=== PATIENT | male | born 1950 | race Caucasian/White ===

== ENCOUNTER 2022-02-21 17:51 | Inpatient (IN) | payer MEDICARE, OTHER ==
[~2022-02-21] VITALS: Ht 165.1 cm; Wt 84.4 kg
[2022-02-21] MEDS ORDERED: NS 1,000 ML IV SCH (18:05)
[2022-02-21] MEDS ORDERED: ONDANSETRON 4MG 2ML VIAL IV ONE ×2 (18:05→19:30)
[2022-02-21] MEDS ORDERED: MORPHINE 4 MG/ML 1ML VIAL/SYRINGE IV ONE (18:05)
[2022-02-21 19:12] LABS: RSV AMPLIFICATION NEGATIVE (NEGATIVE)
[2022-02-21 19:37] LABS: BASO # 0.1 10^3/uL (0.0-0.2); BASO % 0.6 % (0.0-1.0); EOS # 0.2 10^3/uL (0.0-0.5); HEMATOCRIT 36.2 % (42.0-52.0); HEMOGLOBIN 11.7 g/dl (13.5-17.5); LYMPH # 1.1 10^3/uL (1.5-5.0); LYMPH % 12.4 % (24.0-44.0); MEAN CORPUSCULAR HEMOGLOBIN 31.2 pg (27.0-33.0); MEAN CORPUSCULAR HGB CONC 32.3 g/dl (32.0-36.5); MEAN CORPUSCULAR VOLUME 96.5 fl (80.0-96.0); MONO % 28.4 % (2.0-8.0); NEUTROPHILS # 4.7 10^3/uL (1.5-8.5); NEUTROPHILS % 54.9 % (36.0-66.0); RED BLOOD COUNT 3.75 10^6/uL (4.30-6.10); WHITE BLOOD COUNT 8.5 10^3/uL (4.0-10.0)
[2022-02-21] MEDS: MORPHINE 4 MG/ML 1ML VIAL/SYRINGE IV PRN ×2 (19:38→20:31)
[2022-02-21 19:44] LABS: INR 1.07; PROTHROMBIN TIME 14.1 SECONDS (12.5-14.5)
[2022-02-21 20:10] LABS: MONO # 2.4 10^3/uL (0.0-0.8); PLATELET COUNT, AUTOMATED 52 10^3/uL (150-450)
[2022-02-21 20:20] LABS: BLOOD UREA NITROGEN 13 MG/DL (7-18); CALCIUM LEVEL 8.2 MG/DL (8.8-10.2); CARBON DIOXIDE LEVEL 27 MEQ/L (21-32); CHLORIDE LEVEL 108 MEQ/L (98-107); CK-MB VALUE MASS 1.3 NG/ML (<3.6); CREATININE FOR GFR 0.73 MG/DL (0.70-1.30); GLOMERULAR FILTRATION RATE > 60.0 (>49); GLUCOSE, FASTING 104 MG/DL (70-100); MB/CK RELATIVE INDEX 1.4 (< OR =4); SODIUM LEVEL 140 MEQ/L (136-145)
[2022-02-21] MEDS ORDERED: CLOP75TA99 PO (21:06)
[2022-02-21] MEDS ORDERED: HYDR12CA PO (21:07)
[2022-02-21] MEDS ORDERED: ATOR80TA59 PO (21:07)
[2022-02-21] MEDS ORDERED: ATEN25TA PO (21:07)
[2022-02-21] MEDS ORDERED: OMEP40CA5 PO (21:07)
[2022-02-21] MEDS ORDERED: LEVO50TA5 PO (21:07)
[2022-02-21] MEDS ORDERED: ASPI-161 PO (21:07)
[2022-02-21] MEDS ORDERED: HOME MED LIST COMPLETE! XX SCH (21:10)
[2022-02-21] MEDS: HYDROMORPHONE HCL 0.5 MG/ 0.5 ML SYRINGE (J1170 PER 1) IV PRN (21:26)
[2022-02-21] MEDS ORDERED: ALBUTEROL SULFATE 2.5 MG/0.5 ML INH NEB SOLN NEB PRN (21:55)
[2022-02-21] MEDS ORDERED: ACETAMINOPHEN TAB 650MG DOSE (2X325MG) PO PRN (21:55)
[2022-02-21] MEDS ORDERED: IPRATROPIUM 0.5MG/ALBUTEROL 2.5MG INH SOL UD 3ML (DUONEB) NEB ONE (23:00)
[2022-02-21] MEDS ORDERED: LORazepam 2 MG TAB PO PRN (23:25)
[2022-02-21 23:33] VITALS: BP 137/61
[2022-02-21] MEDS: THIAMINE 100 MG TAB PO SCH (23:40)
[2022-02-22] VITALS (27 sets, daily range): BP systolic 105–142; BP diastolic 54–77; O2SAT 87–96
[2022-02-22 00:40] LABS: ALBUMIN 3.5 GM/DL (3.2-5.2); BILIRUBIN,DIRECT 0.3 MG/DL (0.0-0.2); BILIRUBIN,TOTAL 0.7 MG/DL (0.2-1.0); TOTAL PROTEIN 6.1 GM/DL (6.4-8.2)
[2022-02-22] MEDS: HYDROMORPHONE HCL 0.5 MG/ 0.5 ML SYRINGE (J1170 PER 1) IV PRN ×5 (00:43→20:46)
[2022-02-22] MEDS: IPRATROPIUM 0.5MG/ALBUTEROL 2.5MG INH SOL UD 3ML (DUONEB) NEB SCH ×7 (01:04→23:39)
[2022-02-22] MEDS: LEVOTHYROXINE 50MCG TABLET (0.05MG) PO SCH (05:10)
[2022-02-22 06:02] LABS: HEMATOCRIT 32.8 % (42.0-52.0); HEMOGLOBIN 10.4 g/dl (13.5-17.5); MEAN CORPUSCULAR HEMOGLOBIN 31.1 pg (27.0-33.0); MEAN CORPUSCULAR HGB CONC 31.7 g/dl (32.0-36.5); MEAN CORPUSCULAR VOLUME 98.2 fl (80.0-96.0); PLATELET COUNT, AUTOMATED 58 10^3/uL (150-450); RED BLOOD COUNT 3.34 10^6/uL (4.30-6.10); WHITE BLOOD COUNT 9.7 10^3/uL (4.0-10.0)
[2022-02-22 06:33] LABS: BLOOD UREA NITROGEN 13 MG/DL (7-18); CALCIUM LEVEL 7.8 MG/DL (8.8-10.2); CARBON DIOXIDE LEVEL 28 MEQ/L (21-32); CHLORIDE LEVEL 105 MEQ/L (98-107); CREATININE FOR GFR 0.78 MG/DL (0.70-1.30); GLOMERULAR FILTRATION RATE > 60.0 (>49); GLUCOSE, FASTING 103 MG/DL (70-100); MAGNESIUM LEVEL 2.1 MG/DL (1.8-2.4); POTASSIUM SERUM 4.4 MEQ/L (3.5-5.1); SODIUM LEVEL 138 MEQ/L (136-145)
[2022-02-22] MEDS ORDERED: methylPREDNISolone 125MG 2ML VIAL IV ONE (07:35)
[2022-02-22 08:25] LABS: LDH LACTATE DEHYDROGENASE 237 U/L (87-241)
[2022-02-22] MEDS: THIAMINE 100 MG TAB PO SCH ×2 (09:28→20:45)
[2022-02-22] MEDS: MULTIVITAMINS/MINERALS THERAP 1 TAB PO SCH (09:28)
[2022-02-22] MEDS: hydroCHLOROthiazide 12.5 MG CAPSULE PO SCH (09:28)
[2022-02-22] MEDS: atenoloL 25 MG TAB PO SCH (09:28)
[2022-02-22] MEDS: ATORVASTATIN 20 MG TAB PO SCH (09:28)
[2022-02-22] MEDS: PANTOPRAZOLE 40MG TAB (PROTONIX) PO SCH (09:28)
[2022-02-22] MEDS: FOLIC ACID 1MG TAB PO SCH (09:29)
[2022-02-22 15:13] LABS: HEMATOCRIT 33.7 % (42.0-52.0); HEMOGLOBIN 10.7 g/dl (13.5-17.5); MEAN CORPUSCULAR HEMOGLOBIN 31.3 pg (27.0-33.0); MEAN CORPUSCULAR HGB CONC 31.8 g/dl (32.0-36.5); MEAN CORPUSCULAR VOLUME 98.5 fl (80.0-96.0); RED BLOOD COUNT 3.42 10^6/uL (4.30-6.10); WHITE BLOOD COUNT 8.1 10^3/uL (4.0-10.0)
[2022-02-22 15:22] LABS: PLATELET COUNT, AUTOMATED 75 10^3/uL (150-450)
[2022-02-22 15:35] LABS: ATYPICAL LYMPH 5 % (0-5); BLAST CELLS 1 % (0-0); EOSINOPHILS 1 % (0-3); LYMPHOCYTES 2 % (16-44); METAMYELOCYTES 4 % (0-0); MONOCYTES 7 % (0-5); MYELOCYTES 2 % (0-0); NEUTROPHILS 49 % (28-66); PLATELET ESTIMATE DECREASED (NORMAL)
[2022-02-22 15:36] LABS: ANISOCYTOSIS 1+
[2022-02-22] MEDS ORDERED: PANTOPRAZOLE 40MG VIAL IV ONE (16:00)
[2022-02-22] MEDS ORDERED: PANTOPRAZOLE 40MG VIAL IV SCH (16:00)
[2022-02-22] MEDS ORDERED: FONDAPARINUX SODIUM 2.5 MG/0.5 ML SYRINGE SC ONE (18:00)
[2022-02-22] MEDS: methylPREDNISolone 40MG 1ML VIAL IV SCH (20:45)
[2022-02-22] MEDS ORDERED: ISOVUE-370 76% 100ML VIAL As Ordered ONE (21:13)
[2022-02-22] MEDS ORDERED: guaiFENesin SYRUP 200MG 10ML UDC PO PRN (22:15)
[2022-02-22 23:42] LABS: HEMATOCRIT 31.4 % (42.0-52.0); MEAN CORPUSCULAR HEMOGLOBIN 31.2 pg (27.0-33.0); MEAN CORPUSCULAR HGB CONC 31.8 g/dl (32.0-36.5); MEAN CORPUSCULAR VOLUME 97.8 fl (80.0-96.0); RED BLOOD COUNT 3.21 10^6/uL (4.30-6.10); WHITE BLOOD COUNT 8.4 10^3/uL (4.0-10.0)
[2022-02-22 23:43] LABS: PLATELET COUNT, AUTOMATED 98 10^3/uL (150-450)
[2022-02-23] VITALS (30 sets, daily range): BP systolic 102–123; BP diastolic 51–60; O2SAT 89–98
[2022-02-23] MEDS: HYDROMORPHONE HCL 0.5 MG/ 0.5 ML SYRINGE (J1170 PER 1) IV PRN ×3 (00:17→10:43)
[2022-02-23] MEDS: IPRATROPIUM 0.5MG/ALBUTEROL 2.5MG INH SOL UD 3ML (DUONEB) NEB SCH ×6 (04:00→23:43)
[2022-02-23 06:10] LABS: HEMATOCRIT 30.9 % (42.0-52.0); HEMOGLOBIN 9.7 g/dl (13.5-17.5); MEAN CORPUSCULAR HEMOGLOBIN 31.2 pg (27.0-33.0); MEAN CORPUSCULAR HGB CONC 31.4 g/dl (32.0-36.5); MEAN CORPUSCULAR VOLUME 99.4 fl (80.0-96.0); PLATELET COUNT, AUTOMATED 89 10^3/uL (150-450); RED BLOOD COUNT 3.11 10^6/uL (4.30-6.10); WHITE BLOOD COUNT 10.5 10^3/uL (4.0-10.0)
[2022-02-23] MEDS: LEVOTHYROXINE 50MCG TABLET (0.05MG) PO SCH (06:23)
[2022-02-23 06:46] LABS: BLOOD UREA NITROGEN 20 MG/DL (7-18); CALCIUM LEVEL 8.7 MG/DL (8.8-10.2); CARBON DIOXIDE LEVEL 30 MEQ/L (21-32); CHLORIDE LEVEL 104 MEQ/L (98-107); CREATININE FOR GFR 0.95 MG/DL (0.70-1.30); GLOMERULAR FILTRATION RATE > 60.0 (>49); GLUCOSE, FASTING 166 MG/DL (70-100); MAGNESIUM LEVEL 2.7 MG/DL (1.8-2.4); PHOSPHORUS LEVEL 4.4 MG/DL (2.5-4.9); POTASSIUM SERUM 4.2 MEQ/L (3.5-5.1); SODIUM LEVEL 141 MEQ/L (136-145)
[2022-02-23] MEDS: ATORVASTATIN 20 MG TAB PO SCH (07:47)
[2022-02-23] MEDS: FOLIC ACID 1MG TAB PO SCH (07:47)
[2022-02-23] MEDS: MULTIVITAMINS/MINERALS THERAP 1 TAB PO SCH (07:47)
[2022-02-23] MEDS: THIAMINE 100 MG TAB PO SCH ×2 (07:47→20:54)
[2022-02-23] MEDS: hydroCHLOROthiazide 12.5 MG CAPSULE PO SCH (07:47)
[2022-02-23] MEDS: atenoloL 25 MG TAB PO SCH (07:48)
[2022-02-23] MEDS: methylPREDNISolone 40MG 1ML VIAL IV SCH ×2 (07:48→20:01)
[2022-02-23] MEDS: PANTOPRAZOLE 40MG TAB (PROTONIX) PO SCH (07:48)
[2022-02-23 14:14] LABS: HEMATOCRIT 31.3 % (42.0-52.0); HEMOGLOBIN 9.7 g/dl (13.5-17.5); MEAN CORPUSCULAR HEMOGLOBIN 30.8 pg (27.0-33.0); MEAN CORPUSCULAR VOLUME 99.4 fl (80.0-96.0); PLATELET COUNT, AUTOMATED 110 10^3/uL (150-450); RED BLOOD COUNT 3.15 10^6/uL (4.30-6.10); WHITE BLOOD COUNT 12.7 10^3/uL (4.0-10.0)
[2022-02-23] MEDS ORDERED: ROCURONIUM BROMIDE 50 MG/5 ML VIAL As Ordered ONE ×2 (15:13→16:48)
[2022-02-23] MEDS ORDERED: ONDANSETRON 4MG 2ML VIAL As Ordered ONE (15:13)
[2022-02-23] MEDS ORDERED: dexameTHASONE 4 MG/ML 1ML VIAL (J1100 PER 1MG) As Ordered ONE (15:13)
[2022-02-23] MEDS ORDERED: LIDOCAINE 2% 100MG/5ML SDV (FOR ANES.) As Ordered ONE (15:13)
[2022-02-23] MEDS ORDERED: propofoL 200 MG/20 ML VIAL As Ordered ONE (15:13)
[2022-02-23] MEDS ORDERED: fentaNYL 100 MCG/2 ML INJECTION As Ordered ONE (15:17)
[2022-02-23] MEDS ORDERED: MIDAZOLAM INJ 2MG/2ML VIAL (J2250 PER 1MG) As Ordered ONE (15:17)
[2022-02-23] MEDS ORDERED: ceFAZolin 2 GM/D5W 50 ML IV BAG (J0690 PER 500MG) As Ordered ONE (15:59)
[2022-02-23] MEDS ORDERED: SUGAMMADEX SODIUM 500 MG/5 ML VIAL (BRIDION) As Ordered ONE (16:33)
[2022-02-23] MEDS ORDERED: ALBUTEROL 6.7GM INHALER **FOR ANES. CART/OMNICELL ONLY As Ordered ONE (17:04)
[2022-02-23] MEDS ORDERED: PHENYLephrine 500MCG 5ML (100MCG/ML) SYRINGE As Ordered ONE (17:04)
[2022-02-23] MEDS ORDERED: LABETALOL 100MG/20ML VIAL As Ordered ONE (17:32)
[2022-02-23] MEDS ORDERED: LR 1,000 ML IV SCH (17:35)
[2022-02-23] MEDS ORDERED: ONDANSETRON 4MG 2ML VIAL IV PRN (17:35)
[2022-02-23] MEDS ORDERED: oxyCODONE 5MG TAB PO PRN (17:35)
[2022-02-23] MEDS ORDERED: ALBUTEROL SULFATE 2.5 MG/0.5 ML INH NEB SOLN INH ONE (17:35)
[2022-02-23] MEDS ORDERED: HYDROMORPHONE HCL 0.5 MG/ 0.5 ML SYRINGE (J1170 PER 1) IV PRN (17:35)
[2022-02-23] MEDS ORDERED: MORPHINE 4 MG/ML 1ML VIAL/SYRINGE IV PRN (17:45)
[2022-02-23] MEDS ORDERED: PROPOFOL 1,000 MG/100 ML VIAL As Ordered ONE (17:52)
[2022-02-23] MEDS ORDERED: FENTANYL DRIP LOCK BOX KEY 1 EACH XX PRN (19:15)
[2022-02-23] MEDS: fentaNYL 100 MCG/2 ML INJECTION IV PRN ×2 (19:21→19:26)
[2022-02-23] MEDS: propofoL 1,000 MG in IV 1 EA IV SCH ×2 (19:22→21:44)
[2022-02-23] MEDS: fentaNYL CITRATE/NaCl 1,000 MCG in IV 1 EA IV SCH (20:01)
[2022-02-23 20:11] LABS: ABG O2 SATURATION 95.9 % (95.0-99.0)
[2022-02-23 20:12] LABS: ABG pH (ARTERIAL) 7.314 UNITS (7.350-7.450)
[2022-02-23 20:13] LABS: ABG BASE EXCESS 3.4 (-2.0-2.0); ABG HCO3 30.6 MEQ/L (22.0-26.0); ABG PARTIAL PRESSURE O2 86.8 mmHg (75.0-100.0); ABG STANDARD HCO3 27.5 MEQ/L (22.0-26.0); ABG TOTAL CO2 32.5 MEQ/L (23.0-31.0)
[2022-02-23 20:15] LABS: ABG PARTIAL PRESSURE CO2 61.6 mmHg (35.0-45.0)
[2022-02-24] VITALS (19 sets, daily range): BP systolic 110–146; BP diastolic 54–69; O2SAT 98
[2022-02-24] MEDS ORDERED: ceFAZolin SOD 2 GM in IV 1 EA IV SCH ×2
[2022-02-24] MEDS: methylPREDNISolone 40MG 1ML VIAL IV SCH ×4 (02:14→19:22)
[2022-02-24] MEDS: propofoL 1,000 MG in IV 1 EA IV SCH ×3 (02:15→19:23)
[2022-02-24] MEDS: IPRATROPIUM 0.5MG/ALBUTEROL 2.5MG INH SOL UD 3ML (DUONEB) NEB SCH ×5 (04:03→19:49)
[2022-02-24 04:57] LABS: HEMATOCRIT 27.9 % (42.0-52.0); HEMOGLOBIN 8.4 g/dl (13.5-17.5); MEAN CORPUSCULAR HEMOGLOBIN 30.8 pg (27.0-33.0); MEAN CORPUSCULAR HGB CONC 30.1 g/dl (32.0-36.5); MEAN CORPUSCULAR VOLUME 102.2 fl (80.0-96.0); RED BLOOD COUNT 2.73 10^6/uL (4.30-6.10)
[2022-02-24 05:08] LABS: ABG HCO3 34.4 MEQ/L (22.0-26.0); ABG O2 SATURATION 94.3 % (95.0-99.0); ABG PARTIAL PRESSURE CO2 59.3 mmHg (35.0-45.0); ABG PARTIAL PRESSURE O2 76.4 mmHg (75.0-100.0); ABG STANDARD HCO3 31.8 MEQ/L (22.0-26.0); ABG TOTAL CO2 36.2 MEQ/L (23.0-31.0); ABG pH (ARTERIAL) 7.381 UNITS (7.350-7.450)
[2022-02-24 05:10] LABS: PLATELET COUNT, AUTOMATED 87 10^3/uL (150-450)
[2022-02-24] MEDS: fentaNYL CITRATE/NaCl 1,000 MCG in IV 1 EA IV SCH ×2 (05:15→13:03)
[2022-02-24 05:18] LABS: ALBUMIN 2.9 GM/DL (3.2-5.2); ALT/SGPT 42 U/L (12-78); BILIRUBIN,TOTAL 0.4 MG/DL (0.2-1.0); BLOOD UREA NITROGEN 22 MG/DL (7-18); CALCIUM LEVEL 8.4 MG/DL (8.8-10.2); CARBON DIOXIDE LEVEL 34 MEQ/L (21-32); CHLORIDE LEVEL 102 MEQ/L (98-107); CREATININE FOR GFR 1.03 MG/DL (0.70-1.30); GLOMERULAR FILTRATION RATE > 60.0 (>49); GLUCOSE, FASTING 153 MG/DL (70-100); MAGNESIUM LEVEL 2.7 MG/DL (1.8-2.4); POTASSIUM SERUM 4.3 MEQ/L (3.5-5.1); SODIUM LEVEL 138 MEQ/L (136-145)
[2022-02-24 05:28] LABS: ANISOCYTOSIS 2+; ATYPICAL LYMPH 3 % (0-5); LYMPHOCYTES 5 % (16-44); METAMYELOCYTES 9 % (0-0); MONOCYTES 20 % (0-5); MYELOCYTES 1 % (0-0); NEUTROPHILS 61 % (28-66); PLATELET ESTIMATE DECREASED (NORMAL)
[2022-02-24 05:29] LABS: HYPOCHROMASIA 1+
[2022-02-24] MEDS: PIPERACILLIN/TAZOBACTAM SOD 3.375 GM in D5W MINI-BAG PLUS 50 ML IV SCH ×4 (05:43→22:21)
[2022-02-24] MEDS: PANTOPRAZOLE 40MG VIAL IV SCH (08:46)
[2022-02-24] MEDS: LEVOTHYROXINE 100MCG (0.1MG) 5ML SDV PF (SOLUTION FORM) IV SCH (08:46)
[2022-02-24] MEDS: dexmedeTOMidine 200 MCG in IV 1 EA IV SCH ×5 (08:54→23:34)
[2022-02-24] MEDS: hydroCHLOROthiazide 12.5 MG CAPSULE PO SCH (08:56)
[2022-02-24] MEDS: FOLIC ACID 1MG TAB PO SCH (08:56)
[2022-02-24] MEDS: ATORVASTATIN 20 MG TAB PO SCH (08:57)
[2022-02-24] MEDS: MULTIVITAMINS/MINERALS THERAP 1 TAB PO SCH (08:57)
[2022-02-24] MEDS: atenoloL 25 MG TAB PO SCH (08:57)
[2022-02-24] MEDS: THIAMINE 100 MG TAB PO SCH (08:57)
[2022-02-24] MEDS ORDERED: LEVOTHYROXINE 100MCG (0.1MG) 5ML SDV PF (SOLUTION FORM) IV SCH (09:00)
[2022-02-24] MEDS: CLOPIDOGREL 75 MG TAB PO SCH (11:53)
[2022-02-24] MEDS: ENOXAPARIN 40MG/0.4ML SYRINGE (J1650 PER 10MG) SC SCH (20:16)
[2022-02-25] VITALS (21 sets, daily range): BP systolic 143–174; BP diastolic 67–82; O2SAT 97–98
[2022-02-25] MEDS: IPRATROPIUM 0.5MG/ALBUTEROL 2.5MG INH SOL UD 3ML (DUONEB) NEB SCH ×7 (00:05→23:11)
[2022-02-25] MEDS: propofoL 1,000 MG in IV 1 EA IV SCH ×3 (02:54→14:35)
[2022-02-25] MEDS: methylPREDNISolone 40MG 1ML VIAL IV SCH ×4 (02:54→20:10)
[2022-02-25] MEDS: dexmedeTOMidine 200 MCG in IV 1 EA IV SCH ×10 (02:54→23:40)
[2022-02-25 04:34] LABS: HEMATOCRIT 28.1 % (42.0-52.0); HEMOGLOBIN 8.8 g/dl (13.5-17.5); MEAN CORPUSCULAR HGB CONC 31.3 g/dl (32.0-36.5); MEAN CORPUSCULAR VOLUME 98.9 fl (80.0-96.0); RED BLOOD COUNT 2.84 10^6/uL (4.30-6.10); WHITE BLOOD COUNT 11.1 10^3/uL (4.0-10.0)
[2022-02-25 04:35] LABS: PLATELET COUNT, AUTOMATED 70 10^3/uL (150-450)
[2022-02-25] MEDS: PIPERACILLIN/TAZOBACTAM SOD 3.375 GM in D5W MINI-BAG PLUS 50 ML IV SCH ×4 (04:54→23:10)
[2022-02-25 05:07] LABS: ALBUMIN 3.1 GM/DL (3.2-5.2); ALT/SGPT 40 U/L (12-78); BILIRUBIN,TOTAL 0.5 MG/DL (0.2-1.0); BLOOD UREA NITROGEN 23 MG/DL (7-18); CALCIUM LEVEL 8.2 MG/DL (8.8-10.2); CARBON DIOXIDE LEVEL 37 MEQ/L (21-32); CHLORIDE LEVEL 100 MEQ/L (98-107); CREATININE FOR GFR 0.98 MG/DL (0.70-1.30); GLOMERULAR FILTRATION RATE > 60.0 (>49); GLUCOSE, FASTING 156 MG/DL (70-100); MAGNESIUM LEVEL 2.9 MG/DL (1.8-2.4); PHOSPHORUS LEVEL 4.1 MG/DL (2.5-4.9); POTASSIUM SERUM 3.9 MEQ/L (3.5-5.1); SODIUM LEVEL 139 MEQ/L (136-145); TOTAL PROTEIN 6.4 GM/DL (6.4-8.2)
[2022-02-25 05:45] LABS: ABG BASE EXCESS 10.5 (-2.0-2.0); ABG HCO3 35.9 MEQ/L (22.0-26.0); ABG O2 SATURATION 98.1 % (95.0-99.0); ABG PARTIAL PRESSURE CO2 53.2 mmHg (35.0-45.0); ABG PARTIAL PRESSURE O2 116.9 mmHg (75.0-100.0); ABG STANDARD HCO3 34.2 MEQ/L (22.0-26.0); ABG TOTAL CO2 37.5 MEQ/L (23.0-31.0); ABG pH (ARTERIAL) 7.447 UNITS (7.350-7.450)
[2022-02-25 07:36] LABS: ATYPICAL LYMPH 2 % (0-5); LYMPHOCYTES 4 % (16-44); METAMYELOCYTES 7 % (0-0); MONOCYTES 32 % (0-5); MYELOCYTES 8 % (0-0); NEUTROPHILS 41 % (28-66)
[2022-02-25 07:37] LABS: ANISOCYTOSIS 2+; HYPOCHROMASIA 1+
[2022-02-25 07:39] LABS: PLATELET ESTIMATE DECREASED (NORMAL); STOMATOCYTES 1+
[2022-02-25] MEDS: MIDAZOLAM INJ 2MG/2ML VIAL (J2250 PER 1MG) IV PRN ×2 (07:58→10:08)
[2022-02-25] MEDS: PANTOPRAZOLE 40MG VIAL IV SCH (08:09)
[2022-02-25] MEDS: ATORVASTATIN 20 MG TAB PO SCH (08:10)
[2022-02-25] MEDS: atenoloL 25 MG TAB PO SCH (08:10)
[2022-02-25] MEDS: MULTIVITAMINS/MINERALS THERAP 1 TAB PO SCH (08:10)
[2022-02-25] MEDS: hydroCHLOROthiazide 12.5 MG CAPSULE PO SCH (08:10)
[2022-02-25] MEDS: CLOPIDOGREL 75 MG TAB PO SCH (08:10)
[2022-02-25] MEDS: FOLIC ACID 1MG TAB PO SCH (08:10)
[2022-02-25] MEDS: LEVOTHYROXINE 100MCG (0.1MG) 5ML SDV PF (SOLUTION FORM) IV SCH (08:13)
[2022-02-25] MEDS: fentaNYL CITRATE/NaCl 1,000 MCG in IV 1 EA IV SCH (08:55)
[2022-02-25] MEDS: ASPIRIN 81MG ENTERIC TABLET PO SCH (09:00)
[2022-02-25 11:05] LABS: ABG BASE EXCESS 9.6 (-2.0-2.0); ABG HCO3 35.3 MEQ/L (22.0-26.0); ABG O2 SATURATION 92.6 % (95.0-99.0); ABG PARTIAL PRESSURE CO2 54.8 mmHg (35.0-45.0); ABG PARTIAL PRESSURE O2 66.5 mmHg (75.0-100.0); ABG STANDARD HCO3 33.2 MEQ/L (22.0-26.0); ABG pH (ARTERIAL) 7.427 UNITS (7.350-7.450)
[2022-02-25] MEDS ORDERED: LORazepam 2 MG/ML VIAL As Ordered ONE (12:10)
[2022-02-25] MEDS ORDERED: HALOPERIDOL 5MG/ML VIAL (J1630 PER 1) As Ordered ONE (12:12)
[2022-02-25] MEDS ORDERED: HALOPERIDOL 5MG/ML VIAL (J1630 PER 1) IM STA (12:15)
[2022-02-25] MEDS ORDERED: LORazepam 2 MG/ML VIAL IV STA (12:15)
[2022-02-25] MEDS ORDERED: dexameTHASONE 20MG/5ML VIAL (J1100 PER 1MG) IV STA (12:21)
[2022-02-25] MEDS ORDERED: LORazepam 2 MG/ML VIAL IV PRN (13:35)
[2022-02-25] MEDS: LORazepam 2 MG/ML VIAL IV PRN (19:38)
[2022-02-25] MEDS: ENOXAPARIN 40MG/0.4ML SYRINGE (J1650 PER 10MG) SC SCH (20:10)
[2022-02-26] VITALS (13 sets, daily range): BP systolic 122–171; BP diastolic 61–79
[2022-02-26] MEDS: methylPREDNISolone 40MG 1ML VIAL IV SCH ×4 (01:33→20:08)
[2022-02-26] MEDS: dexmedeTOMidine 200 MCG in IV 1 EA IV SCH ×8 (01:34→23:06)
[2022-02-26] MEDS: LORazepam 2 MG/ML VIAL IV PRN ×5 (02:17→18:45)
[2022-02-26] MEDS: IPRATROPIUM 0.5MG/ALBUTEROL 2.5MG INH SOL UD 3ML (DUONEB) NEB SCH ×2 (02:58→07:48)
[2022-02-26] MEDS: PIPERACILLIN/TAZOBACTAM SOD 3.375 GM in D5W MINI-BAG PLUS 50 ML IV SCH (04:09)
[2022-02-26 05:00] LABS: HEMATOCRIT 31.2 % (42.0-52.0); HEMOGLOBIN 9.6 g/dl (13.5-17.5); MEAN CORPUSCULAR HEMOGLOBIN 30.9 pg (27.0-33.0); MEAN CORPUSCULAR HGB CONC 30.8 g/dl (32.0-36.5); MEAN CORPUSCULAR VOLUME 100.3 fl (80.0-96.0); PLATELET COUNT, AUTOMATED 76 10^3/uL (150-450); RED BLOOD COUNT 3.11 10^6/uL (4.30-6.10); WHITE BLOOD COUNT 10.5 10^3/uL (4.0-10.0)
[2022-02-26 05:11] LABS: ANISOCYTOSIS 2+; ATYPICAL LYMPH 4 % (0-5); LYMPHOCYTES 5 % (16-44); METAMYELOCYTES 4 % (0-0); MONOCYTES 14 % (0-5); MYELOCYTES 6 % (0-0); NEUTROPHILS 65 % (28-66); PLATELET ESTIMATE DECREASED (NORMAL); POIKILOCYTOSIS 1+
[2022-02-26 05:12] LABS: HYPOCHROMASIA 1+
[2022-02-26 05:51] LABS: ALBUMIN 3.2 GM/DL (3.2-5.2); ALT/SGPT 42 U/L (12-78); BILIRUBIN,TOTAL 0.7 MG/DL (0.2-1.0); BLOOD UREA NITROGEN 26 MG/DL (7-18); CALCIUM LEVEL 8.8 MG/DL (8.8-10.2); CARBON DIOXIDE LEVEL 32 MEQ/L (21-32); CHLORIDE LEVEL 103 MEQ/L (98-107); CREATININE FOR GFR 0.84 MG/DL (0.70-1.30); GLOMERULAR FILTRATION RATE > 60.0 (>49); GLUCOSE, FASTING 158 MG/DL (70-100); MAGNESIUM LEVEL 2.9 MG/DL (1.8-2.4); PHOSPHORUS LEVEL 4.4 MG/DL (2.5-4.9); POTASSIUM SERUM 4.7 MEQ/L (3.5-5.1); SODIUM LEVEL 141 MEQ/L (136-145); TOTAL PROTEIN 6.9 GM/DL (6.4-8.2)
[2022-02-26] MEDS: PANTOPRAZOLE 40MG VIAL IV SCH (08:00)
[2022-02-26] MEDS: atenoloL 25 MG TAB PO SCH (09:00)
[2022-02-26] MEDS: FOLIC ACID 1MG TAB PO SCH (09:00)
[2022-02-26] MEDS: MULTIVITAMINS/MINERALS THERAP 1 TAB PO SCH (09:00)
[2022-02-26] MEDS: ATORVASTATIN 20 MG TAB PO SCH (09:00)
[2022-02-26] MEDS: CLOPIDOGREL 75 MG TAB PO SCH (09:00)
[2022-02-26] MEDS: ASPIRIN 81MG ENTERIC TABLET PO SCH (09:00)
[2022-02-26] MEDS ORDERED: IPRATROPIUM 0.5MG/ALBUTEROL 2.5MG INH SOL UD 3ML (DUONEB) NEB PRN (10:20)
[2022-02-26] MEDS ORDERED: LR 1,000 ML IV SCH (10:20)
[2022-02-26] MEDS ORDERED: HALOPERIDOL 5MG/ML VIAL (J1630 PER 1) IV PRN ×2 (10:20→20:00)
[2022-02-26] MEDS: LEVOTHYROXINE 100MCG (0.1MG) 5ML SDV PF (SOLUTION FORM) IV SCH (10:42)
[2022-02-26] MEDS: ALBUTEROL SULFATE 2.5 MG/0.5 ML INH NEB SOLN NEB SCH ×3 (11:31→20:44)
[2022-02-26] MEDS: SODIUM CHLORIDE HYPERTONIC 3% 15ML NEB SOL INH SCH ×3 (11:31→20:44)
[2022-02-26] MEDS: ENOXAPARIN 40MG/0.4ML SYRINGE (J1650 PER 10MG) SC SCH (20:08)
[2022-02-27] VITALS (22 sets, daily range): BP systolic 111–185; BP diastolic 55–124
[2022-02-27] MEDS: SODIUM CHLORIDE HYPERTONIC 3% 15ML NEB SOL INH SCH ×6 (00:10→20:47)
[2022-02-27] MEDS: ALBUTEROL SULFATE 2.5 MG/0.5 ML INH NEB SOLN NEB SCH ×6 (00:10→20:47)
[2022-02-27] MEDS: dexmedeTOMidine 200 MCG in IV 1 EA IV SCH ×6 (01:14→15:05)
[2022-02-27] MEDS: methylPREDNISolone 40MG 1ML VIAL IV SCH ×3 (01:14→17:12)
[2022-02-27 06:28] LABS: HEMATOCRIT 29.4 % (42.0-52.0); HEMOGLOBIN 9.3 g/dl (13.5-17.5); MEAN CORPUSCULAR HEMOGLOBIN 31.2 pg (27.0-33.0); MEAN CORPUSCULAR HGB CONC 31.6 g/dl (32.0-36.5); MEAN CORPUSCULAR VOLUME 98.7 fl (80.0-96.0); RED BLOOD COUNT 2.98 10^6/uL (4.30-6.10); WHITE BLOOD COUNT 9.4 10^3/uL (4.0-10.0)
[2022-02-27 06:33] LABS: PLATELET COUNT, AUTOMATED 76 10^3/uL (150-450)
[2022-02-27 06:52] LABS: ALT/SGPT 42 U/L (12-78); BILIRUBIN,TOTAL 0.7 MG/DL (0.2-1.0); BLOOD UREA NITROGEN 28 MG/DL (7-18); CALCIUM LEVEL 8.7 MG/DL (8.8-10.2); CARBON DIOXIDE LEVEL 30 MEQ/L (21-32); CHLORIDE LEVEL 106 MEQ/L (98-107); CREATININE FOR GFR 0.76 MG/DL (0.70-1.30); GLOMERULAR FILTRATION RATE > 60.0 (>49); GLUCOSE, FASTING 154 MG/DL (70-100); MAGNESIUM LEVEL 2.9 MG/DL (1.8-2.4); PHOSPHORUS LEVEL 4.9 MG/DL (2.5-4.9); POTASSIUM SERUM 4.7 MEQ/L (3.5-5.1); SODIUM LEVEL 140 MEQ/L (136-145); TOTAL PROTEIN 6.4 GM/DL (6.4-8.2)
[2022-02-27 07:30] LABS: ATYPICAL LYMPH 2 % (0-5); LYMPHOCYTES 6 % (16-44); METAMYELOCYTES 2 % (0-0); MONOCYTES 17 % (0-5); MYELOCYTES 2 % (0-0); NEUTROPHILS 59 % (28-66)
[2022-02-27 07:32] LABS: ANISOCYTOSIS 1+; PLATELET ESTIMATE DECREASED (NORMAL); SMUDGE CELLS 1+
[2022-02-27 07:33] LABS: POLYCHROMASIA 1+
[2022-02-27] MEDS: LORazepam 2 MG/ML VIAL IV PRN (08:19)
[2022-02-27] MEDS ORDERED: dexmedeTOMidine 200 MCG in IV 1 EA IV SCH (08:32)
[2022-02-27] MEDS: NS 0.45% 1,000 ML IV SCH ×2 (08:58→21:54)
[2022-02-27] MEDS: PANTOPRAZOLE 40MG VIAL IV SCH (08:59)
[2022-02-27] MEDS: LEVOTHYROXINE 100MCG (0.1MG) 5ML SDV PF (SOLUTION FORM) IV SCH (08:59)
[2022-02-27] MEDS: atenoloL 25 MG TAB PO SCH (09:00)
[2022-02-27] MEDS: CLOPIDOGREL 75 MG TAB PO SCH (09:00)
[2022-02-27] MEDS: ATORVASTATIN 20 MG TAB PO SCH (09:00)
[2022-02-27] MEDS: MULTIVITAMINS/MINERALS THERAP 1 TAB PO SCH (09:00)
[2022-02-27] MEDS: ASPIRIN 81MG ENTERIC TABLET PO SCH ×2 (09:00→18:31)
[2022-02-27] MEDS: FOLIC ACID 1MG TAB PO SCH (09:00)
[2022-02-27] MEDS ORDERED: ACETAMINOPHEN 650 MG SUPP PR PRN (11:05)
[2022-02-27] MEDS ORDERED: ASPIRIN 300 MG SUPP PR SCH (11:05)
[2022-02-27] MEDS ORDERED: atenoloL 25 MG TAB PO ONE (18:00)
[2022-02-27] MEDS ORDERED: CLOPIDOGREL 75 MG TAB PO ONE (18:20)
[2022-02-27] MEDS: ENOXAPARIN 40MG/0.4ML SYRINGE (J1650 PER 10MG) SC SCH (21:35)
[2022-02-28] VITALS (10 sets, daily range): BP systolic 109–144; BP diastolic 55–69
[2022-02-28] MEDS: ALBUTEROL SULFATE 2.5 MG/0.5 ML INH NEB SOLN NEB SCH ×6 (00:04→19:43)
[2022-02-28] MEDS: SODIUM CHLORIDE HYPERTONIC 3% 15ML NEB SOL INH SCH ×6 (00:04→19:43)
[2022-02-28] MEDS: methylPREDNISolone 40MG 1ML VIAL IV SCH ×2 (02:24→14:57)
[2022-02-28 05:33] LABS: HEMATOCRIT 28.6 % (42.0-52.0); HEMOGLOBIN 8.9 g/dl (13.5-17.5); MEAN CORPUSCULAR HGB CONC 31.1 g/dl (32.0-36.5); MEAN CORPUSCULAR VOLUME 99.7 fl (80.0-96.0); RED BLOOD COUNT 2.87 10^6/uL (4.30-6.10); WHITE BLOOD COUNT 12.3 10^3/uL (4.0-10.0)
[2022-02-28 05:46] LABS: PLATELET COUNT, AUTOMATED 77 10^3/uL (150-450)
[2022-02-28 05:51] LABS: LYMPHOCYTES 10 % (16-44); METAMYELOCYTES 5 % (0-0); MONOCYTES 23 % (0-5); MYELOCYTES 2 % (0-0); NEUTROPHILS 57 % (28-66)
[2022-02-28 05:52] LABS: ANISOCYTOSIS 1+; HYPOCHROMASIA 1+; PLATELET ESTIMATE DECREASED (NORMAL)
[2022-02-28 05:53] LABS: SMUDGE CELLS 1+
[2022-02-28 06:16] LABS: ALT/SGPT 46 U/L (12-78); BILIRUBIN,TOTAL 0.9 MG/DL (0.2-1.0); BLOOD UREA NITROGEN 27 MG/DL (7-18); CALCIUM LEVEL 8.2 MG/DL (8.8-10.2); CARBON DIOXIDE LEVEL 29 MEQ/L (21-32); CHLORIDE LEVEL 105 MEQ/L (98-107); CREATININE FOR GFR 0.77 MG/DL (0.70-1.30); GLOMERULAR FILTRATION RATE > 60.0 (>49); GLUCOSE, FASTING 128 MG/DL (70-100); MAGNESIUM LEVEL 2.5 MG/DL (1.8-2.4); POTASSIUM SERUM 4.1 MEQ/L (3.5-5.1); SODIUM LEVEL 139 MEQ/L (136-145); TOTAL PROTEIN 5.9 GM/DL (6.4-8.2)
[2022-02-28] MEDS ORDERED: ACETAMINOPHEN TAB 650MG DOSE (2X325MG) PO PRN (08:25)
[2022-02-28] MEDS: MULTIVITAMINS/MINERALS THERAP 1 TAB PO SCH (08:32)
[2022-02-28] MEDS: FOLIC ACID 1MG TAB PO SCH (08:32)
[2022-02-28] MEDS: ASPIRIN 81MG ENTERIC TABLET PO SCH (08:32)
[2022-02-28] MEDS: ATORVASTATIN 20 MG TAB PO SCH (08:33)
[2022-02-28] MEDS: atenoloL 25 MG TAB PO SCH (08:33)
[2022-02-28] MEDS: CLOPIDOGREL 75 MG TAB PO SCH (08:33)
[2022-02-28] MEDS: LEVOTHYROXINE 100MCG (0.1MG) 5ML SDV PF (SOLUTION FORM) IV SCH (08:34)
[2022-02-28] MEDS: PANTOPRAZOLE 40MG VIAL IV SCH (08:34)
[2022-02-28] MEDS: SENNA 8.6 MG TAB (SENOKOT) PO SCH ×2 (10:42→21:02)
[2022-02-28] MEDS: MIRALAX *UNIT DOSE* 17GM PACKET PO SCH ×2 (10:43→21:02)
[2022-02-28] MEDS: oxyCODONE 5MG TAB PO PRN (14:58)
[2022-02-28] MEDS: ENOXAPARIN 40MG/0.4ML SYRINGE (J1650 PER 10MG) SC SCH (21:02)
[2022-02-28] MEDS ORDERED: CLOTRIMAZOLE 1% TOPICAL CREAM 30GM TOP PRN (22:10)
[2022-03-01] VITALS: BP 136/60
[2022-03-01] MEDS: SODIUM CHLORIDE HYPERTONIC 3% 15ML NEB SOL INH SCH ×4 (00:08→11:36)
[2022-03-01] MEDS: ALBUTEROL SULFATE 2.5 MG/0.5 ML INH NEB SOLN NEB SCH ×4 (00:08→11:36)
[2022-03-01] MEDS: methylPREDNISolone 40MG 1ML VIAL IV SCH (02:28)
[2022-03-01] MEDS: oxyCODONE 5MG TAB PO PRN (02:29)
[2022-03-01 04:00] VITALS: BP 144/66
[2022-03-01 05:01] LABS: HEMATOCRIT 29.7 % (42.0-52.0); HEMOGLOBIN 9.3 g/dl (13.5-17.5); MEAN CORPUSCULAR HEMOGLOBIN 31.2 pg (27.0-33.0); MEAN CORPUSCULAR HGB CONC 31.3 g/dl (32.0-36.5); MEAN CORPUSCULAR VOLUME 99.7 fl (80.0-96.0); RED BLOOD COUNT 2.98 10^6/uL (4.30-6.10); WHITE BLOOD COUNT 16.4 10^3/uL (4.0-10.0)
[2022-03-01 05:02] LABS: PLATELET COUNT, AUTOMATED 77 10^3/uL (150-450)
[2022-03-01 05:19] LABS: LYMPHOCYTES 13 % (16-44); METAMYELOCYTES 2 % (0-0); MONOCYTES 21 % (0-5); NEUTROPHILS 59 % (28-66)
[2022-03-01 05:20] LABS: PLATELET ESTIMATE DECREASED (NORMAL)
[2022-03-01 05:21] LABS: ANISOCYTOSIS 1+
[2022-03-01 05:35] LABS: ALBUMIN 2.9 GM/DL (3.2-5.2); ALT/SGPT 44 U/L (12-78); BILIRUBIN,TOTAL 0.9 MG/DL (0.2-1.0); BLOOD UREA NITROGEN 26 MG/DL (7-18); CALCIUM LEVEL 8.1 MG/DL (8.8-10.2); CARBON DIOXIDE LEVEL 29 MEQ/L (21-32); CHLORIDE LEVEL 108 MEQ/L (98-107); CREATININE FOR GFR 0.75 MG/DL (0.70-1.30); GLOMERULAR FILTRATION RATE > 60.0 (>49); GLUCOSE, FASTING 106 MG/DL (70-100); MAGNESIUM LEVEL 2.3 MG/DL (1.8-2.4); POTASSIUM SERUM 3.7 MEQ/L (3.5-5.1); SODIUM LEVEL 140 MEQ/L (136-145); TOTAL PROTEIN 5.8 GM/DL (6.4-8.2)
[2022-03-01 06:00] VITALS: BP 139/65
[2022-03-01] MEDS ORDERED: LEVOTHYROXINE 50MCG TABLET (0.05MG) PO SCH (06:00)
[2022-03-01] MEDS ORDERED: SYMBICORT 80/4.5MCG INHALER 6GM INH SCH (08:00)
[2022-03-01 08:01] VITALS: BP 164/76
[2022-03-01] MEDS: ASPIRIN 81MG ENTERIC TABLET PO SCH (08:24)
[2022-03-01] MEDS: SENNA 8.6 MG TAB (SENOKOT) PO SCH (08:24)
[2022-03-01] MEDS: FOLIC ACID 1MG TAB PO SCH (08:24)
[2022-03-01] MEDS: atenoloL 25 MG TAB PO SCH (08:24)
[2022-03-01] MEDS: MIRALAX *UNIT DOSE* 17GM PACKET PO SCH (08:25)
[2022-03-01] MEDS: MULTIVITAMINS/MINERALS THERAP 1 TAB PO SCH (08:25)
[2022-03-01] MEDS: CLOPIDOGREL 75 MG TAB PO SCH (08:25)
[2022-03-01] MEDS: ATORVASTATIN 20 MG TAB PO SCH (08:25)
[2022-03-01] MEDS ORDERED: THIAMINE 100 MG TAB PO SCH (09:00)
[2022-03-01] MEDS ORDERED: PANTOPRAZOLE 40MG TAB (PROTONIX) PO SCH (09:00)
[2022-03-01] MEDS ORDERED: FOLI1TAB11 PO (10:34)
[2022-03-01] MEDS ORDERED: MIRA1POW3 PO (10:35)
[2022-03-01] MEDS ORDERED: PRED20TA PO (10:35)
[2022-03-01] MEDS ORDERED: IPRA0.00 NEB (10:35)
[2022-03-01] MEDS ORDERED: OXYC-517 PO (10:35)
[2022-03-01] MEDS ORDERED: THIA100TA PO (10:35)
[2022-03-02] MEDS ORDERED: predniSONE 20 MG TAB PO SCH (09:00)
== END 2022-03-01 14:04 | DRG 480 ==
LOC: EDBD 17:51 → M ED 17:51 → M ED INP 21:54 → ENRESERV 02-22 00:42 → M PCU 02-22 01:41 → M ICU 02-23 19:31 → M PCU 03-01 05:47
PROVIDERS: ADMIT Internal Medicine; ATTEND Internal Medicine
PROC: 30233R1 Transfusion of Nonautologous Platelets into Peripheral Vein, Percutaneous Approach (ICD-10-PCS; 2022-02-21)
PROC: 0QS606Z Reposition Right Upper Femur with Intramedullary Internal Fixation Device, Open Approach (ICD-10-PCS; principal; 2022-02-23 11:00)
DX: S72.141A Displaced intertrochanteric fracture of right femur, initial encounter for closed fracture (principal); J69.0 Pneumonitis due to inhalation of food and vomit; J44.1 Chronic obstructive pulmonary disease with (acute) exacerbation; F10.139 Alcohol abuse with withdrawal, unspecified; J96.11 Chronic respiratory failure with hypoxia; J96.12 Chronic respiratory failure with hypercapnia; I25.10 Atherosclerotic heart disease of native coronary artery without angina pectoris; I73.9 Peripheral vascular disease, unspecified; F17.210 Nicotine dependence, cigarettes, uncomplicated; G47.33 Obstructive sleep apnea (adult) (pediatric); D69.6 Thrombocytopenia, unspecified; W18.09XA Striking against other object with subsequent fall, initial encounter; Y92.73 Farm field as the place of occurrence of the external cause; Y93.01 Activity, walking, marching and hiking; Z95.820 Peripheral vascular angioplasty status with implants and grafts; Z79.82 Long term (current) use of aspirin; Z79.02 Long term (current) use of antithrombotics/antiplatelets; Z79.52 Long term (current) use of systemic steroids; Z79.899 Other long term (current) drug therapy; Z90.2 Acquired absence of lung [part of]; Z95.5 Presence of coronary angioplasty implant and graft; Z85.118 Personal history of other malignant neoplasm of bronchus and lung; Z92.3 Personal history of irradiation; Z92.21 Personal history of antineoplastic chemotherapy

== ENCOUNTER 2022-03-01 10:00 | Inpatient (IN) | payer MEDICARE ==
[~2022-03-01] VITALS: Ht 165.1 cm; Wt 88.7 kg
[~2022-03-01 10:00] MED LIST: ASPI-161 PO; ATEN25TA PO; ATOR80TA59 PO; CLOP75TA99 PO; HYDR12CA PO; LEVO50TA5 PO; OMEP40CA5 PO
[2022-03-01] MEDS ORDERED: FOLI1TAB11 PO (10:34)
[2022-03-01] MEDS ORDERED: MIRA1POW3 PO (10:35)
[2022-03-01] MEDS ORDERED: OXYC-517 PO (10:35)
[2022-03-01] MEDS ORDERED: IPRA0.00 NEB (10:35)
[2022-03-01] MEDS ORDERED: THIA100TA PO (10:35)
[2022-03-01] MEDS ORDERED: PRED20TA PO (10:35)
[2022-03-01 14:00] VITALS: BP 146/70
[2022-03-01] MEDS ORDERED: ONDANSETRON 4MG TAB PO PRN (14:30)
[2022-03-01] MEDS ORDERED: MIRALAX *UNIT DOSE* 17GM PACKET PO PRN (14:30)
[2022-03-01] MEDS: REMEDY PHYTOPLEX Z-GUARD PASTE 113GM TUBE (FROM STOREROOM PRODUCT) TOP SCH ×2 (16:00→20:52)
[2022-03-01] MEDS: GABAPENTIN 100 MG CAP PO SCH ×2 (16:05→20:51)
[2022-03-01] MEDS: ACETAMINOPHEN 500 MG TAB PO SCH ×2 (16:05→20:51)
[2022-03-01] MEDS: SUCRALFATE 1 GM TAB PO SCH ×2 (17:27→20:51)
[2022-03-01] MEDS: oxyCODONE 5MG TAB PO PRN (17:27)
[2022-03-01 20:00] VITALS: BP 127/64
[2022-03-01] MEDS: PANTOPRAZOLE 40MG TAB (PROTONIX) PO SCH (20:51)
[2022-03-01] MEDS: DOCUSATE SODIUM 100MG CAPSULE PO SCH (20:52)
[2022-03-01] MEDS: SENNA 8.6 MG TAB (SENOKOT) PO SCH (20:52)
[2022-03-01] MEDS ORDERED: ENOXAPARIN 40MG/0.4ML SYRINGE (J1650 PER 10MG) SC SCH (21:00)
[2022-03-01] MEDS: SYMBICORT 80/4.5MCG INHALER 6GM INH SCH (21:06)
[2022-03-01] MEDS: COMBIVENT RESPIMAT 100-20MCG INHALER 4GM INH SCH (21:06)
[2022-03-02] MEDS: LEVOTHYROXINE 50MCG TABLET (0.05MG) PO SCH (05:15)
[2022-03-02 06:00] VITALS: BP 117/56
[2022-03-02] MEDS: oxyCODONE 5MG TAB PO PRN (07:01)
[2022-03-02] MEDS: THIAMINE 100 MG TAB PO SCH (07:16)
[2022-03-02] MEDS: predniSONE 10 MG TAB PO SCH (07:17)
[2022-03-02] MEDS: PANTOPRAZOLE 40MG TAB (PROTONIX) PO SCH (07:18)
[2022-03-02] MEDS: FOLIC ACID 1MG TAB PO SCH (07:18)
[2022-03-02] MEDS: ASPIRIN 81MG ENTERIC TABLET PO SCH (07:18)
[2022-03-02] MEDS: GABAPENTIN 100 MG CAP PO SCH (07:18)
[2022-03-02] MEDS: MULTIVITAMINS/MINERALS THERAP 1 TAB PO SCH (07:18)
[2022-03-02] MEDS: CLOPIDOGREL 75 MG TAB PO SCH (07:18)
[2022-03-02] MEDS: ACETAMINOPHEN 500 MG TAB PO SCH ×3 (07:18→20:41)
[2022-03-02] MEDS: ATORVASTATIN 20 MG TAB PO SCH (07:18)
[2022-03-02] MEDS: SUCRALFATE 1 GM TAB PO SCH ×4 (07:18→20:41)
[2022-03-02] MEDS: REMEDY PHYTOPLEX Z-GUARD PASTE 113GM TUBE (FROM STOREROOM PRODUCT) TOP SCH ×3 (07:19→20:42)
[2022-03-02] MEDS: atenoloL 25 MG TAB PO SCH (07:19)
[2022-03-02] MEDS: DOCUSATE SODIUM 100MG CAPSULE PO SCH ×2 (07:21→20:42)
[2022-03-02 07:31] LABS: HEMATOCRIT 30.3 % (42.0-52.0); HEMOGLOBIN 9.2 g/dl (13.5-17.5); MEAN CORPUSCULAR HEMOGLOBIN 30.7 pg (27.0-33.0); MEAN CORPUSCULAR HGB CONC 30.4 g/dl (32.0-36.5); WHITE BLOOD COUNT 14.9 10^3/uL (4.0-10.0)
[2022-03-02 07:35] LABS: PLATELET COUNT, AUTOMATED 66 10^3/uL (150-450)
[2022-03-02 08:13] LABS: ALBUMIN 2.9 GM/DL (3.2-5.2); ALKALINE PHOSPHATASE 64 U/L (45-117); ALT/SGPT 39 U/L (12-78); AST/SGOT 14 U/L (7-37); BLOOD UREA NITROGEN 28 MG/DL (7-18); CALCIUM LEVEL 8.3 MG/DL (8.8-10.2); CARBON DIOXIDE LEVEL 29 MEQ/L (21-32); CHLORIDE LEVEL 108 MEQ/L (98-107); CREATININE FOR GFR 0.86 MG/DL (0.70-1.30); GLOMERULAR FILTRATION RATE > 60.0 (>49); GLUCOSE, FASTING 89 MG/DL (70-100); POTASSIUM SERUM 3.4 MEQ/L (3.5-5.1); SODIUM LEVEL 141 MEQ/L (136-145); TOTAL PROTEIN 5.4 GM/DL (6.4-8.2)
[2022-03-02 08:24] LABS: ATYPICAL LYMPH 3 % (0-5); EOSINOPHILS 2 % (0-3); LYMPHOCYTES 7 % (16-44); METAMYELOCYTES 3 % (0-0); MONOCYTES 23 % (0-5); NEUTROPHILS 59 % (28-66)
[2022-03-02 08:25] LABS: ANISOCYTOSIS 1+; PLATELET ESTIMATE DECREASED (NORMAL)
[2022-03-02] MEDS: SYMBICORT 80/4.5MCG INHALER 6GM INH SCH ×2 (08:51→20:36)
[2022-03-02] MEDS: COMBIVENT RESPIMAT 100-20MCG INHALER 4GM INH SCH (08:51)
[2022-03-02] MEDS ORDERED: MULTIVITAMINS/MINERALS THERAP 1 TAB PO SCH (09:00)
[2022-03-02] MEDS ORDERED: COMBIVENT RESPIMAT 100-20MCG INHALER 4GM INH PRN (12:05)
[2022-03-02] MEDS: TIOTROPIUM INHALER/CAPSULE (SPIRIVA) INH SCH (13:36)
[2022-03-02 14:00] VITALS: BP 136/72
[2022-03-02] MEDS: GABAPENTIN 300 MG CAP PO SCH ×2 (16:32→20:41)
[2022-03-02 20:00] VITALS: BP 124/66
[2022-03-02] MEDS: SENNA 8.6 MG TAB (SENOKOT) PO SCH (20:42)
[2022-03-03] MEDS: LEVOTHYROXINE 50MCG TABLET (0.05MG) PO SCH (05:32)
[2022-03-03 06:00] VITALS: BP 139/63
[2022-03-03 06:48] LABS: HEMATOCRIT 28.3 % (42.0-52.0); HEMOGLOBIN 8.8 g/dl (13.5-17.5); MEAN CORPUSCULAR HEMOGLOBIN 30.9 pg (27.0-33.0); MEAN CORPUSCULAR HGB CONC 31.1 g/dl (32.0-36.5); MEAN CORPUSCULAR VOLUME 99.3 fl (80.0-96.0); RED BLOOD COUNT 2.85 10^6/uL (4.30-6.10); WHITE BLOOD COUNT 13.1 10^3/uL (4.0-10.0)
[2022-03-03 06:49] LABS: PLATELET COUNT, AUTOMATED 64 10^3/uL (150-450)
[2022-03-03 07:25] LABS: BLOOD UREA NITROGEN 24 MG/DL (9-23); CALCIUM LEVEL 7.8 MG/DL (8.3-10.6); CARBON DIOXIDE LEVEL 28 MMOL/L (20-31); CHLORIDE LEVEL 106 MMOL/L (98-107); CREATININE FOR GFR 0.74 MG/DL (0.70-1.30); GLOMERULAR FILTRATION RATE > 60.0 (>49); GLUCOSE, FASTING 95 MG/DL (74-106); POTASSIUM SERUM 3.4 MMOL/L (3.5-5.1); SODIUM LEVEL 144 MMOL/L (136-145)
[2022-03-03] MEDS: ACETAMINOPHEN 500 MG TAB PO SCH ×3 (07:26→20:04)
[2022-03-03 07:35] LABS: EOSINOPHILS 2 % (0-3); LYMPHOCYTES 17 % (16-44); METAMYELOCYTES 2 % (0-0); MONOCYTES 29 % (0-5); NEUTROPHILS 43 % (28-66)
[2022-03-03 07:36] LABS: ANISOCYTOSIS 1+; HYPOCHROMASIA 1+; PLATELET ESTIMATE DECREASED (NORMAL)
[2022-03-03] MEDS: SYMBICORT 80/4.5MCG INHALER 6GM INH SCH ×2 (08:03→19:29)
[2022-03-03] MEDS: TIOTROPIUM INHALER/CAPSULE (SPIRIVA) INH SCH (08:03)
[2022-03-03] MEDS: ATORVASTATIN 20 MG TAB PO SCH (08:12)
[2022-03-03] MEDS: FOLIC ACID 1MG TAB PO SCH (08:12)
[2022-03-03] MEDS: SUCRALFATE 1 GM TAB PO SCH ×4 (08:12→20:03)
[2022-03-03] MEDS: THIAMINE 100 MG TAB PO SCH (08:12)
[2022-03-03] MEDS: PANTOPRAZOLE 40MG TAB (PROTONIX) PO SCH (08:12)
[2022-03-03] MEDS: CLOPIDOGREL 75 MG TAB PO SCH (08:13)
[2022-03-03] MEDS: GABAPENTIN 300 MG CAP PO SCH ×3 (08:13→20:03)
[2022-03-03] MEDS: predniSONE 10 MG TAB PO SCH (08:13)
[2022-03-03] MEDS: ASPIRIN 81MG ENTERIC TABLET PO SCH (08:13)
[2022-03-03] MEDS: MULTIVITAMINS/MINERALS THERAP 1 TAB PO SCH (08:13)
[2022-03-03] MEDS: DOCUSATE SODIUM 100MG CAPSULE PO SCH ×2 (08:14→20:03)
[2022-03-03] MEDS: atenoloL 25 MG TAB PO SCH (08:14)
[2022-03-03] MEDS: REMEDY PHYTOPLEX Z-GUARD PASTE 113GM TUBE (FROM STOREROOM PRODUCT) TOP SCH ×3 (08:14→20:04)
[2022-03-03] MEDS: oxyCODONE 5MG TAB PO PRN (08:48)
[2022-03-03] MEDS ORDERED: POTASSIUM CHLORIDE 10MEQ SR TABLET PO ONE (10:30)
[2022-03-03 13:53] LABS: MAGNESIUM LEVEL 1.9 MG/DL (1.8-2.4)
[2022-03-03 14:00] VITALS: BP 139/64
[2022-03-03 20:00] VITALS: BP 102/62
[2022-03-03] MEDS: SENNA 8.6 MG TAB (SENOKOT) PO SCH (20:03)
[2022-03-03] MEDS ORDERED: BISACODYL 10 MG SUPP PR PRN (20:20)
[2022-03-04] MEDS: LEVOTHYROXINE 50MCG TABLET (0.05MG) PO SCH (06:18)
[2022-03-04] MEDS: oxyCODONE 5MG TAB PO SCH ×2 (06:20→11:14)
[2022-03-04 06:50] VITALS: BP 138/70
[2022-03-04 07:06] LABS: BLOOD UREA NITROGEN 24 MG/DL (9-23); CALCIUM LEVEL 8.6 MG/DL (8.3-10.6); CARBON DIOXIDE LEVEL 29 MMOL/L (20-31); CHLORIDE LEVEL 109 MMOL/L (98-107); CREATININE FOR GFR 0.79 MG/DL (0.70-1.30); GLOMERULAR FILTRATION RATE > 60.0 (>49); GLUCOSE, FASTING 111 MG/DL (74-106); POTASSIUM SERUM 3.6 MMOL/L (3.5-5.1); SODIUM LEVEL 145 MMOL/L (136-145)
[2022-03-04] MEDS: MIRALAX *UNIT DOSE* 17GM PACKET PO SCH (09:00)
[2022-03-04] MEDS: atenoloL 25 MG TAB PO SCH (09:00)
[2022-03-04] MEDS: REMEDY PHYTOPLEX Z-GUARD PASTE 113GM TUBE (FROM STOREROOM PRODUCT) TOP SCH ×3 (09:00→21:05)
[2022-03-04] MEDS: TIOTROPIUM INHALER/CAPSULE (SPIRIVA) INH SCH (09:00)
[2022-03-04] MEDS: SYMBICORT 80/4.5MCG INHALER 6GM INH SCH ×2 (09:01→20:52)
[2022-03-04] MEDS: ASPIRIN 81MG ENTERIC TABLET PO SCH (09:17)
[2022-03-04] MEDS: SUCRALFATE 1 GM TAB PO SCH ×4 (09:17→21:04)
[2022-03-04] MEDS: ATORVASTATIN 20 MG TAB PO SCH (09:19)
[2022-03-04] MEDS: THIAMINE 100 MG TAB PO SCH (09:19)
[2022-03-04] MEDS: FOLIC ACID 1MG TAB PO SCH (09:19)
[2022-03-04] MEDS: GABAPENTIN 300 MG CAP PO SCH (09:20)
[2022-03-04] MEDS: MULTIVITAMINS/MINERALS THERAP 1 TAB PO SCH (09:20)
[2022-03-04] MEDS: PANTOPRAZOLE 40MG TAB (PROTONIX) PO SCH (09:20)
[2022-03-04] MEDS: predniSONE 10 MG TAB PO SCH (09:20)
[2022-03-04] MEDS: ACETAMINOPHEN 500 MG TAB PO SCH ×3 (09:21→21:05)
[2022-03-04] MEDS: DOCUSATE SODIUM 100MG CAPSULE PO SCH ×2 (09:21→21:05)
[2022-03-04] MEDS: CLOPIDOGREL 75 MG TAB PO SCH (09:21)
[2022-03-04 14:00] VITALS: BP 146/69
[2022-03-04 20:00] VITALS: BP 137/59
[2022-03-04] MEDS: SENNA 8.6 MG TAB (SENOKOT) PO SCH (21:05)
[2022-03-04] MEDS: RAMELTEON 8 MG TAB (ROZEREM) PO SCH (21:05)
[2022-03-04] MEDS: GABAPENTIN 400MG CAP PO SCH (21:05)
[2022-03-05 05:12] VITALS: BP 130/60
[2022-03-05] MEDS: LEVOTHYROXINE 50MCG TABLET (0.05MG) PO SCH (05:23)
[2022-03-05 05:42] LABS: HEMATOCRIT 27.2 % (42.0-52.0); HEMOGLOBIN 8.2 g/dl (13.5-17.5); MEAN CORPUSCULAR HEMOGLOBIN 30.6 pg (27.0-33.0); MEAN CORPUSCULAR HGB CONC 30.1 g/dl (32.0-36.5); MEAN CORPUSCULAR VOLUME 101.5 fl (80.0-96.0); RED BLOOD COUNT 2.68 10^6/uL (4.30-6.10); WHITE BLOOD COUNT 13.7 10^3/uL (4.0-10.0)
[2022-03-05 05:46] LABS: PLATELET COUNT, AUTOMATED 83 10^3/uL (150-450)
[2022-03-05] MEDS: oxyCODONE 5MG TAB PO SCH ×3 (06:03→13:18)
[2022-03-05] MEDS: GABAPENTIN 300 MG CAP PO SCH ×2 (06:04→13:17)
[2022-03-05 06:49] LABS: BLOOD UREA NITROGEN 24 MG/DL (9-23); CALCIUM LEVEL 8.4 MG/DL (8.3-10.6); CARBON DIOXIDE LEVEL 27 MMOL/L (20-31); CHLORIDE LEVEL 110 MMOL/L (98-107); CREATININE FOR GFR 0.68 MG/DL (0.70-1.30); GLOMERULAR FILTRATION RATE > 60.0 (>49); GLUCOSE, FASTING 90 MG/DL (74-106); POTASSIUM SERUM 3.5 MMOL/L (3.5-5.1); SODIUM LEVEL 144 MMOL/L (136-145)
[2022-03-05] MEDS: SUCRALFATE 1 GM TAB PO SCH ×4 (07:30→20:21)
[2022-03-05 08:10] LABS: ATYPICAL LYMPH 4 % (0-5); EOSINOPHILS 2 % (0-3); LYMPHOCYTES 23 % (16-44); METAMYELOCYTES 1 % (0-0); MONOCYTES 20 % (0-5); NEUTROPHILS 44 % (28-66)
[2022-03-05 08:11] LABS: ANISOCYTOSIS 1+; HYPOCHROMASIA 1+; MICROCYTOSIS 1+; PLATELET ESTIMATE DECREASED (NORMAL)
[2022-03-05] MEDS: TIOTROPIUM INHALER/CAPSULE (SPIRIVA) INH SCH (08:48)
[2022-03-05] MEDS: SYMBICORT 80/4.5MCG INHALER 6GM INH SCH ×2 (08:49→20:15)
[2022-03-05] MEDS: REMEDY PHYTOPLEX Z-GUARD PASTE 113GM TUBE (FROM STOREROOM PRODUCT) TOP SCH ×3 (09:00→20:08)
[2022-03-05] MEDS: ANALGESIC BALM CRM 3OZ TOP SCH ×3 (09:00→20:22)
[2022-03-05] MEDS: predniSONE 10 MG TAB PO SCH (10:03)
[2022-03-05] MEDS: ASPIRIN 81MG ENTERIC TABLET PO SCH (10:03)
[2022-03-05] MEDS: MIRALAX *UNIT DOSE* 17GM PACKET PO SCH (10:03)
[2022-03-05] MEDS: DICLOFENAC EPOLAMINE 1.3 % PATCH TOP SCH ×2 (10:03→22:09)
[2022-03-05] MEDS: MULTIVITAMINS/MINERALS THERAP 1 TAB PO SCH (10:03)
[2022-03-05] MEDS: FERROUS SULFATE 325MG TAB PO SCH (10:04)
[2022-03-05] MEDS: atenoloL 25 MG TAB PO SCH (10:04)
[2022-03-05] MEDS: DOCUSATE SODIUM 100MG CAPSULE PO SCH ×2 (10:04→20:20)
[2022-03-05] MEDS: ATORVASTATIN 20 MG TAB PO SCH (10:06)
[2022-03-05] MEDS: FOLIC ACID 1MG TAB PO SCH (10:07)
[2022-03-05] MEDS: CLOPIDOGREL 75 MG TAB PO SCH (10:07)
[2022-03-05] MEDS: PANTOPRAZOLE 40MG TAB (PROTONIX) PO SCH (10:07)
[2022-03-05] MEDS: THIAMINE 100 MG TAB PO SCH (10:07)
[2022-03-05] MEDS: ACETAMINOPHEN 500 MG TAB PO SCH ×3 (10:08→20:21)
[2022-03-05] MEDS: oxyCODONE 5MG TAB PO PRN ×2 (10:38→22:08)
[2022-03-05 14:00] VITALS: BP 117/57
[2022-03-05 20:00] VITALS: BP 112/55
[2022-03-05] MEDS: GABAPENTIN 400MG CAP PO SCH (20:20)
[2022-03-05] MEDS: SENNA 8.6 MG TAB (SENOKOT) PO SCH (20:21)
[2022-03-05] MEDS: RAMELTEON 8 MG TAB (ROZEREM) PO SCH (22:08)
[2022-03-06] MEDS: LEVOTHYROXINE 50MCG TABLET (0.05MG) PO SCH (05:12)
[2022-03-06 06:00] VITALS: BP 124/57
[2022-03-06] MEDS: GABAPENTIN 300 MG CAP PO SCH ×2 (06:29→11:07)
[2022-03-06] MEDS: oxyCODONE 5MG TAB PO SCH ×2 (06:30→11:08)
[2022-03-06] MEDS: MIRALAX *UNIT DOSE* 17GM PACKET PO SCH (07:20)
[2022-03-06] MEDS: FERROUS SULFATE 325MG TAB PO SCH (07:20)
[2022-03-06] MEDS: DOCUSATE SODIUM 100MG CAPSULE PO SCH ×2 (07:20→20:32)
[2022-03-06] MEDS: FOLIC ACID 1MG TAB PO SCH (07:20)
[2022-03-06] MEDS: THIAMINE 100 MG TAB PO SCH (07:20)
[2022-03-06] MEDS: ASPIRIN 81MG ENTERIC TABLET PO SCH (07:20)
[2022-03-06] MEDS: CLOPIDOGREL 75 MG TAB PO SCH (07:21)
[2022-03-06] MEDS: atenoloL 25 MG TAB PO SCH (07:21)
[2022-03-06] MEDS: MULTIVITAMINS/MINERALS THERAP 1 TAB PO SCH (07:21)
[2022-03-06] MEDS: ACETAMINOPHEN 500 MG TAB PO SCH ×3 (07:21→20:33)
[2022-03-06] MEDS: ATORVASTATIN 20 MG TAB PO SCH (07:21)
[2022-03-06] MEDS: SUCRALFATE 1 GM TAB PO SCH ×4 (07:21→20:33)
[2022-03-06] MEDS: PANTOPRAZOLE 40MG TAB (PROTONIX) PO SCH (07:21)
[2022-03-06] MEDS: predniSONE 10 MG TAB PO SCH (07:22)
[2022-03-06] MEDS: REMEDY PHYTOPLEX Z-GUARD PASTE 113GM TUBE (FROM STOREROOM PRODUCT) TOP SCH ×3 (07:22→20:00)
[2022-03-06] MEDS: ANALGESIC BALM CRM 3OZ TOP SCH ×3 (07:22→20:34)
[2022-03-06 08:00] LABS: HEMATOCRIT 31.2 % (42.0-52.0); HEMOGLOBIN 9.4 g/dl (13.5-17.5); MEAN CORPUSCULAR HEMOGLOBIN 30.9 pg (27.0-33.0); MEAN CORPUSCULAR HGB CONC 30.1 g/dl (32.0-36.5); MEAN CORPUSCULAR VOLUME 102.6 fl (80.0-96.0); PLATELET COUNT, AUTOMATED 104 10^3/uL (150-450); RED BLOOD COUNT 3.04 10^6/uL (4.30-6.10); WHITE BLOOD COUNT 15.4 10^3/uL (4.0-10.0)
[2022-03-06] MEDS: TIOTROPIUM INHALER/CAPSULE (SPIRIVA) INH SCH (08:00)
[2022-03-06] MEDS: SYMBICORT 80/4.5MCG INHALER 6GM INH SCH ×2 (08:00→20:20)
[2022-03-06 08:35] LABS: ATYPICAL LYMPH 4 % (0-5); EOSINOPHILS 1 % (0-3); LYMPHOCYTES 10 % (16-44); METAMYELOCYTES 2 % (0-0); MONOCYTES 21 % (0-5); MYELOCYTES 2 % (0-0); NEUTROPHILS 44 % (28-66)
[2022-03-06 08:36] LABS: ANISOCYTOSIS 2+; PLATELET ESTIMATE DECREASED (NORMAL); POLYCHROMASIA 1+
[2022-03-06 08:37] LABS: POIKILOCYTOSIS 1+
[2022-03-06] MEDS: DICLOFENAC EPOLAMINE 1.3 % PATCH TOP SCH ×3 (11:08→22:00)
[2022-03-06 14:00] VITALS: BP 155/69
[2022-03-06 20:00] VITALS: BP 132/78
[2022-03-06] MEDS: oxyCODONE 5MG TAB PO PRN (20:32)
[2022-03-06] MEDS: GABAPENTIN 400MG CAP PO SCH (20:32)
[2022-03-06] MEDS: SENNA 8.6 MG TAB (SENOKOT) PO SCH (20:32)
[2022-03-06] MEDS: RAMELTEON 8 MG TAB (ROZEREM) PO SCH (21:32)
[2022-03-07] MEDS: LEVOTHYROXINE 50MCG TABLET (0.05MG) PO SCH (05:34)
[2022-03-07 06:00] VITALS: BP 139/65
[2022-03-07] MEDS: SUCRALFATE 1 GM TAB PO SCH ×4 (06:58→21:08)
[2022-03-07] MEDS: GABAPENTIN 300 MG CAP PO SCH ×2 (06:58→11:10)
[2022-03-07] MEDS: DICLOFENAC EPOLAMINE 1.3 % PATCH TOP SCH ×2 (06:58→21:09)
[2022-03-07] MEDS: oxyCODONE 5MG TAB PO SCH ×2 (06:58→11:11)
[2022-03-07] MEDS: ASPIRIN 81MG ENTERIC TABLET PO SCH (08:35)
[2022-03-07] MEDS: atenoloL 25 MG TAB PO SCH (08:35)
[2022-03-07] MEDS: ACETAMINOPHEN 500 MG TAB PO SCH ×3 (08:35→21:09)
[2022-03-07] MEDS: ATORVASTATIN 20 MG TAB PO SCH (08:35)
[2022-03-07] MEDS: FERROUS SULFATE 325MG TAB PO SCH (08:35)
[2022-03-07] MEDS: PANTOPRAZOLE 40MG TAB (PROTONIX) PO SCH ×2 (08:35→21:09)
[2022-03-07] MEDS: MIRALAX *UNIT DOSE* 17GM PACKET PO SCH (08:35)
[2022-03-07] MEDS: THIAMINE 100 MG TAB PO SCH (08:36)
[2022-03-07] MEDS: FOLIC ACID 1MG TAB PO SCH (08:36)
[2022-03-07] MEDS: MULTIVITAMINS/MINERALS THERAP 1 TAB PO SCH (08:36)
[2022-03-07] MEDS: CLOPIDOGREL 75 MG TAB PO SCH (08:36)
[2022-03-07] MEDS: predniSONE 10 MG TAB PO SCH (08:36)
[2022-03-07] MEDS: DOCUSATE SODIUM 100MG CAPSULE PO SCH ×2 (08:36→21:00)
[2022-03-07] MEDS: ANALGESIC BALM CRM 3OZ TOP SCH ×3 (08:37→21:10)
[2022-03-07] MEDS: REMEDY PHYTOPLEX Z-GUARD PASTE 113GM TUBE (FROM STOREROOM PRODUCT) TOP SCH ×3 (08:39→21:00)
[2022-03-07] MEDS: SYMBICORT 80/4.5MCG INHALER 6GM INH SCH ×2 (11:06→20:18)
[2022-03-07] MEDS: TIOTROPIUM INHALER/CAPSULE (SPIRIVA) INH SCH (11:06)
[2022-03-07 14:00] VITALS: BP 135/63
[2022-03-07] MEDS: oxyCODONE 5MG TAB PO PRN (15:16)
[2022-03-07 20:00] VITALS: BP 129/60
[2022-03-07] MEDS: SENNA 8.6 MG TAB (SENOKOT) PO SCH (21:00)
[2022-03-07] MEDS: RAMELTEON 8 MG TAB (ROZEREM) PO SCH (21:08)
[2022-03-07] MEDS: GABAPENTIN 400MG CAP PO SCH (21:09)
[2022-03-08] MEDS: LEVOTHYROXINE 50MCG TABLET (0.05MG) PO SCH (05:14)
[2022-03-08 05:51] LABS: HEMATOCRIT 26.1 % (42.0-52.0); HEMOGLOBIN 7.9 g/dl (13.5-17.5); MEAN CORPUSCULAR HEMOGLOBIN 31.3 pg (27.0-33.0); MEAN CORPUSCULAR HGB CONC 30.3 g/dl (32.0-36.5); MEAN CORPUSCULAR VOLUME 103.6 fl (80.0-96.0); PLATELET COUNT, AUTOMATED 105 10^3/uL (150-450); RED BLOOD COUNT 2.52 10^6/uL (4.30-6.10)
[2022-03-08] MEDS: oxyCODONE 5MG TAB PO SCH ×2 (06:05→11:50)
[2022-03-08] MEDS: GABAPENTIN 300 MG CAP PO SCH ×2 (06:05→11:49)
[2022-03-08 06:16] LABS: ATYPICAL LYMPH 1 % (0-5); EOSINOPHILS 1 % (0-3); LYMPHOCYTES 6 % (16-44); METAMYELOCYTES 1 % (0-0); MONOCYTES 19 % (0-5); MYELOCYTES 2 % (0-0); NEUTROPHILS 66 % (28-66); PLATELET ESTIMATE DECREASED (NORMAL)
[2022-03-08 06:17] LABS: ANISOCYTOSIS 1+; POIKILOCYTOSIS 1+
[2022-03-08 06:22] LABS: BLOOD UREA NITROGEN 17 MG/DL (9-23); CALCIUM LEVEL 7.4 MG/DL (8.3-10.6); CARBON DIOXIDE LEVEL 31 MMOL/L (20-31); CHLORIDE LEVEL 106 MMOL/L (98-107); CREATININE FOR GFR 0.67 MG/DL (0.70-1.30); GLOMERULAR FILTRATION RATE > 60.0 (>49); GLUCOSE, FASTING 108 MG/DL (74-106); POTASSIUM SERUM 3.4 MMOL/L (3.5-5.1); SODIUM LEVEL 143 MMOL/L (136-145)
[2022-03-08 07:00] VITALS: BP 134/64
[2022-03-08] MEDS: SYMBICORT 80/4.5MCG INHALER 6GM INH SCH (07:06)
[2022-03-08] MEDS: TIOTROPIUM INHALER/CAPSULE (SPIRIVA) INH SCH (07:06)
[2022-03-08] MEDS: DOCUSATE SODIUM 100MG CAPSULE PO SCH ×2 (07:48→21:26)
[2022-03-08] MEDS: THIAMINE 100 MG TAB PO SCH (07:49)
[2022-03-08] MEDS: FOLIC ACID 1MG TAB PO SCH (07:49)
[2022-03-08] MEDS: ASPIRIN 81MG ENTERIC TABLET PO SCH (07:49)
[2022-03-08] MEDS: SUCRALFATE 1 GM TAB PO SCH ×4 (07:49→21:26)
[2022-03-08] MEDS: MULTIVITAMINS/MINERALS THERAP 1 TAB PO SCH (07:49)
[2022-03-08] MEDS: ACETAMINOPHEN 500 MG TAB PO SCH ×3 (07:50→21:26)
[2022-03-08] MEDS: atenoloL 25 MG TAB PO SCH (07:50)
[2022-03-08] MEDS: FERROUS SULFATE 325MG TAB PO SCH (07:50)
[2022-03-08] MEDS: MIRALAX *UNIT DOSE* 17GM PACKET PO SCH (07:51)
[2022-03-08] MEDS: PANTOPRAZOLE 40MG TAB (PROTONIX) PO SCH ×2 (07:51→21:25)
[2022-03-08] MEDS: ATORVASTATIN 20 MG TAB PO SCH (07:52)
[2022-03-08] MEDS: ANALGESIC BALM CRM 3OZ TOP SCH ×3 (07:53→21:27)
[2022-03-08] MEDS: REMEDY PHYTOPLEX Z-GUARD PASTE 113GM TUBE (FROM STOREROOM PRODUCT) TOP SCH ×3 (07:53→21:00)
[2022-03-08] MEDS ORDERED: BUDESONIDE 180MCG INHALER (PULMICORT FLEXHALER) INH SCH (12:05)
[2022-03-08] MEDS: DICLOFENAC EPOLAMINE 1.3 % PATCH TOP SCH ×2 (13:36→21:30)
[2022-03-08] MEDS: predniSONE 10 MG TAB PO SCH (13:36)
[2022-03-08 14:00] VITALS: BP 127/69
[2022-03-08 20:00] VITALS: BP 126/58
[2022-03-08] MEDS: COMBIVENT RESPIMAT 100-20MCG INHALER 4GM INH SCH (20:02)
[2022-03-08] MEDS: SYMBICORT 160/4.5MCG INHALER 6GM INH SCH (20:02)
[2022-03-08] MEDS: SENNA 8.6 MG TAB (SENOKOT) PO SCH (21:00)
[2022-03-08] MEDS: RAMELTEON 8 MG TAB (ROZEREM) PO SCH (21:26)
[2022-03-08] MEDS: GABAPENTIN 400MG CAP PO SCH (21:26)
[2022-03-08] MEDS: oxyCODONE 5MG TAB PO PRN (21:36)
[2022-03-09] VITALS (13 sets, daily range): BP systolic 114–144; BP diastolic 58–71
[2022-03-09] MEDS: GABAPENTIN 300 MG CAP PO SCH ×2 (06:24→11:43)
[2022-03-09] MEDS: LEVOTHYROXINE 50MCG TABLET (0.05MG) PO SCH (06:25)
[2022-03-09] MEDS: oxyCODONE 5MG TAB PO SCH ×2 (06:25→11:44)
[2022-03-09 07:33] LABS: HEMATOCRIT 25.6 % (42.0-52.0); HEMOGLOBIN 7.8 g/dl (13.5-17.5); MEAN CORPUSCULAR HEMOGLOBIN 31.5 pg (27.0-33.0); MEAN CORPUSCULAR HGB CONC 30.5 g/dl (32.0-36.5); MEAN CORPUSCULAR VOLUME 103.2 fl (80.0-96.0); PLATELET COUNT, AUTOMATED 103 10^3/uL (150-450); RED BLOOD COUNT 2.48 10^6/uL (4.30-6.10); WHITE BLOOD COUNT 12.8 10^3/uL (4.0-10.0)
[2022-03-09 08:43] LABS: ANISOCYTOSIS 2+; ATYPICAL LYMPH 4 % (0-5); LYMPHOCYTES 8 % (16-44); METAMYELOCYTES 1 % (0-0); MONOCYTES 18 % (0-5); NEUTROPHILS 64 % (28-66); PLATELET ESTIMATE DECREASED (NORMAL)
[2022-03-09] MEDS: TIOTROPIUM INHALER/CAPSULE (SPIRIVA) INH SCH (08:52)
[2022-03-09] MEDS: COMBIVENT RESPIMAT 100-20MCG INHALER 4GM INH SCH ×4 (08:53→19:55)
[2022-03-09] MEDS: SYMBICORT 160/4.5MCG INHALER 6GM INH SCH ×2 (08:53→19:55)
[2022-03-09] MEDS: MIRALAX *UNIT DOSE* 17GM PACKET PO SCH (09:00)
[2022-03-09] MEDS: REMEDY PHYTOPLEX Z-GUARD PASTE 113GM TUBE (FROM STOREROOM PRODUCT) TOP SCH ×3 (09:00→21:00)
[2022-03-09] MEDS: FERROUS SULFATE 325MG TAB PO SCH (09:08)
[2022-03-09] MEDS: SUCRALFATE 1 GM TAB PO SCH ×4 (09:08→21:01)
[2022-03-09] MEDS: ATORVASTATIN 20 MG TAB PO SCH (09:08)
[2022-03-09] MEDS: PANTOPRAZOLE 40MG TAB (PROTONIX) PO SCH ×2 (09:08→21:01)
[2022-03-09] MEDS: FOLIC ACID 1MG TAB PO SCH (09:08)
[2022-03-09] MEDS: DOCUSATE SODIUM 100MG CAPSULE PO SCH ×2 (09:08→21:01)
[2022-03-09] MEDS: ACETAMINOPHEN 500 MG TAB PO SCH (09:08)
[2022-03-09] MEDS: MULTIVITAMINS/MINERALS THERAP 1 TAB PO SCH (09:08)
[2022-03-09] MEDS: DICLOFENAC EPOLAMINE 1.3 % PATCH TOP SCH ×2 (09:09→21:16)
[2022-03-09] MEDS: ASPIRIN 81MG ENTERIC TABLET PO SCH (09:10)
[2022-03-09] MEDS: atenoloL 25 MG TAB PO SCH (09:10)
[2022-03-09] MEDS: predniSONE 10 MG TAB PO SCH (09:10)
[2022-03-09] MEDS: THIAMINE 100 MG TAB PO SCH (09:10)
[2022-03-09] MEDS: ANALGESIC BALM CRM 3OZ TOP SCH ×3 (09:11→21:03)
[2022-03-09] MEDS: POTASSIUM CHLORIDE 10MEQ SR TABLET PO SCH (10:26)
[2022-03-09] MEDS ORDERED: oxyCODONE 5MG TAB PO ONE (12:35)
[2022-03-09] MEDS ORDERED: ACETAMINOPHEN TAB 650MG DOSE (2X325MG) PO ONE (13:00)
[2022-03-09] MEDS ORDERED: diphenhydrAMINE 25MG CAP PO ONE (13:00)
[2022-03-09] MEDS: SIMETHICONE 80MG CHEW TAB PO SCH ×2 (13:05→21:01)
[2022-03-09] MEDS: guaiFENesin 200 MG TAB PO SCH ×3 (13:07→21:02)
[2022-03-09] MEDS: PREPARATION H SUPP (HEMORRHOID) PR SCH ×2 (13:11→21:00)
[2022-03-09] MEDS ORDERED: FUROSEMIDE 20MG/2ML VIAL (J1940) IV ONE (14:00)
[2022-03-09 14:27] LABS: ALBUMIN 2.8 G/DL (3.2-5.2); ALKALINE PHOSPHATASE 108 U/L (46-116); ALT/SGPT 44 U/L (7.0-40); AST/SGOT 24 U/L (<34); BILIRUBIN,TOTAL 0.6 MG/DL (0.3-1.2); BLOOD UREA NITROGEN 19 MG/DL (9-23); CALCIUM LEVEL 7.8 MG/DL (8.3-10.6); CARBON DIOXIDE LEVEL 33 MMOL/L (20-31); CHLORIDE LEVEL 103 MMOL/L (98-107); GLOMERULAR FILTRATION RATE > 60.0 (>49); GLUCOSE, FASTING 94 MG/DL (74-106); POTASSIUM SERUM 3.7 MMOL/L (3.5-5.1); SODIUM LEVEL 142 MMOL/L (136-145); TOTAL PROTEIN 5.2 G/DL (5.7-8.2)
[2022-03-09] MEDS: ACETAMINOPHEN 325 MG TAB PO SCH ×2 (16:00→21:01)
[2022-03-09] MEDS: SENNA 8.6 MG TAB (SENOKOT) PO SCH (21:00)
[2022-03-09] MEDS: GABAPENTIN 400MG CAP PO SCH (21:01)
[2022-03-09] MEDS: RAMELTEON 8 MG TAB (ROZEREM) PO SCH (21:11)
[2022-03-10 06:00] VITALS: BP 162/74
[2022-03-10] MEDS: GABAPENTIN 300 MG CAP PO SCH ×2 (06:02→12:00)
[2022-03-10] MEDS: LEVOTHYROXINE 50MCG TABLET (0.05MG) PO SCH (06:03)
[2022-03-10 06:42] LABS: HEMATOCRIT 31.9 % (42.0-52.0); MEAN CORPUSCULAR HEMOGLOBIN 31.1 pg (27.0-33.0); MEAN CORPUSCULAR VOLUME 100.3 fl (80.0-96.0); RED BLOOD COUNT 3.18 10^6/uL (4.30-6.10); WHITE BLOOD COUNT 12.8 10^3/uL (4.0-10.0)
[2022-03-10 06:47] LABS: HEMOGLOBIN 9.9 g/dl (13.5-17.5); PLATELET COUNT, AUTOMATED 98 10^3/uL (150-450)
[2022-03-10] MEDS: SYMBICORT 160/4.5MCG INHALER 6GM INH SCH ×2 (07:19→20:55)
[2022-03-10] MEDS: COMBIVENT RESPIMAT 100-20MCG INHALER 4GM INH SCH ×4 (07:19→20:55)
[2022-03-10] MEDS: TIOTROPIUM INHALER/CAPSULE (SPIRIVA) INH SCH (07:19)
[2022-03-10 07:31] LABS: BLOOD UREA NITROGEN 20 MG/DL (9-23); CALCIUM LEVEL 7.8 MG/DL (8.3-10.6); CARBON DIOXIDE LEVEL 34 MMOL/L (20-31); CHLORIDE LEVEL 105 MMOL/L (98-107); GLOMERULAR FILTRATION RATE > 60.0 (>49); GLUCOSE, FASTING 112 MG/DL (74-106); POTASSIUM SERUM 3.3 MMOL/L (3.5-5.1); SODIUM LEVEL 143 MMOL/L (136-145)
[2022-03-10 07:41] LABS: ANISOCYTOSIS 2+; ATYPICAL LYMPH 3 % (0-5); LYMPHOCYTES 12 % (16-44); METAMYELOCYTES 2 % (0-0); MONOCYTES 17 % (0-5); NEUTROPHILS 61 % (28-66); PLATELET ESTIMATE DECREASED (NORMAL)
[2022-03-10] MEDS: ATORVASTATIN 20 MG TAB PO SCH (07:53)
[2022-03-10] MEDS: predniSONE 10 MG TAB PO SCH (07:53)
[2022-03-10] MEDS: guaiFENesin 200 MG TAB PO SCH ×3 (07:54→21:36)
[2022-03-10] MEDS: SUCRALFATE 1 GM TAB PO SCH ×4 (07:54→21:36)
[2022-03-10] MEDS: DOCUSATE SODIUM 100MG CAPSULE PO SCH ×2 (07:54→21:00)
[2022-03-10] MEDS: POTASSIUM CHLORIDE 10MEQ SR TABLET PO SCH (07:55)
[2022-03-10] MEDS: FERROUS SULFATE 325MG TAB PO SCH (07:55)
[2022-03-10] MEDS: PANTOPRAZOLE 40MG TAB (PROTONIX) PO SCH ×2 (07:55→21:36)
[2022-03-10] MEDS: FOLIC ACID 1MG TAB PO SCH (07:55)
[2022-03-10] MEDS: MULTIVITAMINS/MINERALS THERAP 1 TAB PO SCH (07:55)
[2022-03-10] MEDS: atenoloL 25 MG TAB PO SCH (07:56)
[2022-03-10] MEDS: THIAMINE 100 MG TAB PO SCH (07:56)
[2022-03-10] MEDS: SIMETHICONE 80MG CHEW TAB PO SCH ×3 (07:56→21:35)
[2022-03-10] MEDS: ACETAMINOPHEN 325 MG TAB PO SCH ×3 (07:56→21:36)
[2022-03-10] MEDS: MIRALAX *UNIT DOSE* 17GM PACKET PO SCH (08:01)
[2022-03-10] MEDS: PREPARATION H SUPP (HEMORRHOID) PR SCH ×2 (08:01→21:00)
[2022-03-10] MEDS: REMEDY PHYTOPLEX Z-GUARD PASTE 113GM TUBE (FROM STOREROOM PRODUCT) TOP SCH ×3 (08:01→21:00)
[2022-03-10] MEDS: oxyCODONE 5MG TAB PO PRN (08:04)
[2022-03-10] MEDS: ASPIRIN 81MG ENTERIC TABLET PO SCH (08:06)
[2022-03-10] MEDS: ANALGESIC BALM CRM 3OZ TOP SCH ×3 (08:07→21:37)
[2022-03-10] MEDS ORDERED: oxyCODONE 5MG TAB PO ONE (08:40)
[2022-03-10] MEDS ORDERED: PILL CUTTER 1 EACH XX PRN (08:55)
[2022-03-10] MEDS: FLUTICASONE PROP 0.05% NASAL SPRAY 16 GM (FLONASE) NARES SCH ×2 (12:00→21:37)
[2022-03-10] MEDS: DICLOFENAC EPOLAMINE 1.3 % PATCH TOP SCH ×2 (12:01→21:35)
[2022-03-10] MEDS: oxyCODONE 5MG TAB PO SCH ×3 (12:10→21:38)
[2022-03-10 14:00] VITALS: BP 176/74
[2022-03-10] MEDS: CEFDINIR 300 MG CAP (OMNICEF) PO SCH ×2 (14:25→21:36)
[2022-03-10] MEDS: LACTOBACILLUS ACIDOPHILUS CAP (BACID) PO SCH ×3 (14:27→21:36)
[2022-03-10 15:53] VITALS: BP 133/71
[2022-03-10] MEDS: SODIUM CHLORIDE NASAL 0.65% SPRAY BTL (OCEAN) SCH ×2 (17:05→21:37)
[2022-03-10 20:00] VITALS: BP 137/71
[2022-03-10] MEDS ORDERED: POTASSIUM CHLORIDE 10MEQ SR TABLET PO SCH (21:00)
[2022-03-10] MEDS: SENNA 8.6 MG TAB (SENOKOT) PO SCH (21:00)
[2022-03-10] MEDS: GABAPENTIN 400MG CAP PO SCH (21:35)
[2022-03-10] MEDS: RAMELTEON 8 MG TAB (ROZEREM) PO SCH (21:36)
[2022-03-11] MEDS: LEVOTHYROXINE 50MCG TABLET (0.05MG) PO SCH (05:31)
[2022-03-11 05:54] VITALS: BP 148/78
[2022-03-11] MEDS: GABAPENTIN 300 MG CAP PO SCH ×2 (06:07→12:21)
[2022-03-11] MEDS: oxyCODONE 5MG TAB PO SCH ×4 (06:08→21:30)
[2022-03-11 07:01] LABS: BLOOD UREA NITROGEN 23 MG/DL (9-23); CALCIUM LEVEL 8.2 MG/DL (8.3-10.6); CARBON DIOXIDE LEVEL 34 MMOL/L (20-31); CHLORIDE LEVEL 102 MMOL/L (98-107); CREATININE FOR GFR 0.72 MG/DL (0.70-1.30); GLOMERULAR FILTRATION RATE > 60.0 (>49); GLUCOSE, FASTING 93 MG/DL (74-106); POTASSIUM SERUM 4.1 MMOL/L (3.5-5.1); SODIUM LEVEL 143 MMOL/L (136-145)
[2022-03-11] MEDS: TIOTROPIUM INHALER/CAPSULE (SPIRIVA) INH SCH (08:03)
[2022-03-11] MEDS: SYMBICORT 160/4.5MCG INHALER 6GM INH SCH ×2 (08:03→20:39)
[2022-03-11] MEDS: COMBIVENT RESPIMAT 100-20MCG INHALER 4GM INH SCH ×4 (08:03→20:00)
[2022-03-11] MEDS: CEFDINIR 300 MG CAP (OMNICEF) PO SCH ×2 (08:32→20:58)
[2022-03-11] MEDS: PANTOPRAZOLE 40MG TAB (PROTONIX) PO SCH ×2 (08:32→20:59)
[2022-03-11] MEDS: MULTIVITAMINS/MINERALS THERAP 1 TAB PO SCH (08:32)
[2022-03-11] MEDS: FOLIC ACID 1MG TAB PO SCH (08:32)
[2022-03-11] MEDS: LACTOBACILLUS ACIDOPHILUS CAP (BACID) PO SCH ×4 (08:32→20:59)
[2022-03-11] MEDS: SIMETHICONE 80MG CHEW TAB PO SCH ×3 (08:32→20:58)
[2022-03-11] MEDS: guaiFENesin 200 MG TAB PO SCH ×3 (08:32→21:01)
[2022-03-11] MEDS: ACETAMINOPHEN 325 MG TAB PO SCH ×3 (08:33→21:01)
[2022-03-11] MEDS: FERROUS SULFATE 325MG TAB PO SCH (08:33)
[2022-03-11] MEDS: SUCRALFATE 1 GM TAB PO SCH ×4 (08:33→20:59)
[2022-03-11] MEDS: THIAMINE 100 MG TAB PO SCH (08:33)
[2022-03-11] MEDS: ATORVASTATIN 20 MG TAB PO SCH (08:34)
[2022-03-11] MEDS: atenoloL 25 MG TAB PO SCH (08:34)
[2022-03-11] MEDS: ASPIRIN 81MG ENTERIC TABLET PO SCH (08:34)
[2022-03-11] MEDS: predniSONE 10 MG TAB PO SCH (08:37)
[2022-03-11] MEDS: FLUTICASONE PROP 0.05% NASAL SPRAY 16 GM (FLONASE) NARES SCH ×2 (08:40→17:24)
[2022-03-11] MEDS: DOCUSATE SODIUM 100MG CAPSULE PO SCH ×2 (08:40→20:58)
[2022-03-11] MEDS: PREPARATION H SUPP (HEMORRHOID) PR SCH ×2 (08:41→20:17)
[2022-03-11] MEDS: SODIUM CHLORIDE NASAL 0.65% SPRAY BTL (OCEAN) SCH ×3 (08:41→21:04)
[2022-03-11] MEDS: MIRALAX *UNIT DOSE* 17GM PACKET PO SCH (08:41)
[2022-03-11] MEDS: REMEDY PHYTOPLEX Z-GUARD PASTE 113GM TUBE (FROM STOREROOM PRODUCT) TOP SCH ×3 (08:42→20:17)
[2022-03-11] MEDS: ANALGESIC BALM CRM 3OZ TOP SCH ×3 (08:42→21:04)
[2022-03-11] MEDS: DICLOFENAC EPOLAMINE 1.3 % PATCH TOP SCH (12:24)
[2022-03-11 14:00] VITALS: BP 141/64
[2022-03-11 20:00] VITALS: BP 149/67
[2022-03-11] MEDS: SENNA 8.6 MG TAB (SENOKOT) PO SCH (20:59)
[2022-03-11] MEDS: GABAPENTIN 400MG CAP PO SCH (20:59)
[2022-03-11] MEDS: oxyCODONE 5MG TAB PO PRN (21:00)
[2022-03-12] MEDS: RAMELTEON 8 MG TAB (ROZEREM) PO SCH ×2 (00:14→21:47)
[2022-03-12] MEDS: DICLOFENAC EPOLAMINE 1.3 % PATCH TOP SCH ×3 (00:15→21:52)
[2022-03-12 06:00] VITALS: BP 156/75
[2022-03-12] MEDS: LEVOTHYROXINE 50MCG TABLET (0.05MG) PO SCH (06:03)
[2022-03-12] MEDS: GABAPENTIN 300 MG CAP PO SCH ×2 (06:52→11:47)
[2022-03-12] MEDS: SUCRALFATE 1 GM TAB PO SCH ×4 (06:52→21:46)
[2022-03-12] MEDS: oxyCODONE 5MG TAB PO SCH ×4 (06:53→21:47)
[2022-03-12 07:18] LABS: HEMATOCRIT 31.4 % (42.0-52.0); HEMOGLOBIN 9.5 g/dl (13.5-17.5); MEAN CORPUSCULAR HEMOGLOBIN 30.9 pg (27.0-33.0); MEAN CORPUSCULAR HGB CONC 30.3 g/dl (32.0-36.5); MEAN CORPUSCULAR VOLUME 102.3 fl (80.0-96.0); RED BLOOD COUNT 3.07 10^6/uL (4.30-6.10); WHITE BLOOD COUNT 9.4 10^3/uL (4.0-10.0)
[2022-03-12 07:20] LABS: PLATELET COUNT, AUTOMATED 88 10^3/uL (150-450)
[2022-03-12 07:41] LABS: ANISOCYTOSIS 2+; ATYPICAL LYMPH 6 % (0-5); EOSINOPHILS 1 % (0-3); LYMPHOCYTES 11 % (16-44); METAMYELOCYTES 1 % (0-0); MONOCYTES 17 % (0-5); MYELOCYTES 1 % (0-0); NEUTROPHILS 56 % (28-66); PLATELET ESTIMATE DECREASED (NORMAL)
[2022-03-12 07:46] LABS: BLOOD UREA NITROGEN 20 MG/DL (9-23); CALCIUM LEVEL 7.8 MG/DL (8.3-10.6); CARBON DIOXIDE LEVEL 34 MMOL/L (20-31); CHLORIDE LEVEL 101 MMOL/L (98-107); GLOMERULAR FILTRATION RATE > 60.0 (>49); GLUCOSE, FASTING 98 MG/DL (74-106); POTASSIUM SERUM 3.8 MMOL/L (3.5-5.1); SODIUM LEVEL 142 MMOL/L (136-145)
[2022-03-12] MEDS: LACTOBACILLUS ACIDOPHILUS CAP (BACID) PO SCH ×4 (08:00→21:47)
[2022-03-12] MEDS: guaiFENesin 200 MG TAB PO SCH ×3 (09:00→21:46)
[2022-03-12] MEDS: MIRALAX *UNIT DOSE* 17GM PACKET PO SCH (09:00)
[2022-03-12] MEDS: PREPARATION H SUPP (HEMORRHOID) PR SCH ×2 (09:00→21:00)
[2022-03-12] MEDS: REMEDY PHYTOPLEX Z-GUARD PASTE 113GM TUBE (FROM STOREROOM PRODUCT) TOP SCH ×3 (09:00→21:00)
[2022-03-12] MEDS: FOLIC ACID 1MG TAB PO SCH (09:20)
[2022-03-12] MEDS: MULTIVITAMINS/MINERALS THERAP 1 TAB PO SCH (09:20)
[2022-03-12] MEDS: DOCUSATE SODIUM 100MG CAPSULE PO SCH ×2 (09:20→21:46)
[2022-03-12] MEDS: FERROUS SULFATE 325MG TAB PO SCH (09:20)
[2022-03-12] MEDS: ASPIRIN 81MG ENTERIC TABLET PO SCH (09:20)
[2022-03-12] MEDS: SIMETHICONE 80MG CHEW TAB PO SCH ×3 (09:20→21:46)
[2022-03-12] MEDS: CEFDINIR 300 MG CAP (OMNICEF) PO SCH ×2 (09:20→21:46)
[2022-03-12] MEDS: ACETAMINOPHEN 325 MG TAB PO SCH ×3 (09:21→21:47)
[2022-03-12] MEDS: THIAMINE 100 MG TAB PO SCH (09:21)
[2022-03-12] MEDS: PANTOPRAZOLE 40MG TAB (PROTONIX) PO SCH ×2 (09:21→21:46)
[2022-03-12] MEDS: ATORVASTATIN 20 MG TAB PO SCH (09:22)
[2022-03-12] MEDS: predniSONE 10 MG TAB PO SCH (09:22)
[2022-03-12] MEDS: atenoloL 25 MG TAB PO SCH (09:22)
[2022-03-12] MEDS: FLUTICASONE PROP 0.05% NASAL SPRAY 16 GM (FLONASE) NARES SCH ×2 (09:24→21:51)
[2022-03-12] MEDS: SODIUM CHLORIDE NASAL 0.65% SPRAY BTL (OCEAN) SCH ×3 (09:25→21:51)
[2022-03-12] MEDS: ANALGESIC BALM CRM 3OZ TOP SCH ×3 (09:25→21:52)
[2022-03-12] MEDS: SYMBICORT 160/4.5MCG INHALER 6GM INH SCH ×2 (09:46→20:07)
[2022-03-12] MEDS: TIOTROPIUM INHALER/CAPSULE (SPIRIVA) INH SCH (09:46)
[2022-03-12] MEDS: COMBIVENT RESPIMAT 100-20MCG INHALER 4GM INH SCH ×4 (09:47→20:07)
[2022-03-12 14:00] VITALS: BP 131/68
[2022-03-12 20:00] VITALS: BP 137/65
[2022-03-12] MEDS: GABAPENTIN 400MG CAP PO SCH (21:47)
[2022-03-12] MEDS: SENNA 8.6 MG TAB (SENOKOT) PO SCH (21:47)
[2022-03-13 06:00] VITALS: BP 144/66
[2022-03-13] MEDS: LEVOTHYROXINE 50MCG TABLET (0.05MG) PO SCH (06:31)
[2022-03-13] MEDS: GABAPENTIN 300 MG CAP PO SCH ×2 (06:32→11:55)
[2022-03-13] MEDS: oxyCODONE 5MG TAB PO PRN (06:32)
[2022-03-13] MEDS: oxyCODONE 5MG TAB PO SCH ×4 (06:33→21:21)
[2022-03-13] MEDS: TIOTROPIUM INHALER/CAPSULE (SPIRIVA) INH SCH (07:23)
[2022-03-13] MEDS: SYMBICORT 160/4.5MCG INHALER 6GM INH SCH ×2 (07:23→20:42)
[2022-03-13] MEDS: COMBIVENT RESPIMAT 100-20MCG INHALER 4GM INH SCH ×4 (07:23→20:42)
[2022-03-13] MEDS: THIAMINE 100 MG TAB PO SCH (08:06)
[2022-03-13] MEDS: FOLIC ACID 1MG TAB PO SCH (08:06)
[2022-03-13] MEDS: ATORVASTATIN 20 MG TAB PO SCH (08:06)
[2022-03-13] MEDS: predniSONE 10 MG TAB PO SCH (08:06)
[2022-03-13] MEDS: CEFDINIR 300 MG CAP (OMNICEF) PO SCH ×2 (08:06→21:15)
[2022-03-13] MEDS: MULTIVITAMINS/MINERALS THERAP 1 TAB PO SCH (08:06)
[2022-03-13] MEDS: ACETAMINOPHEN 325 MG TAB PO SCH ×3 (08:07→21:16)
[2022-03-13] MEDS: SUCRALFATE 1 GM TAB PO SCH ×4 (08:07→21:16)
[2022-03-13] MEDS: PANTOPRAZOLE 40MG TAB (PROTONIX) PO SCH ×2 (08:07→21:16)
[2022-03-13] MEDS: LACTOBACILLUS ACIDOPHILUS CAP (BACID) PO SCH ×4 (08:07→21:16)
[2022-03-13] MEDS: ASPIRIN 81MG ENTERIC TABLET PO SCH (08:07)
[2022-03-13] MEDS: SIMETHICONE 80MG CHEW TAB PO SCH ×3 (08:07→21:16)
[2022-03-13] MEDS: FERROUS SULFATE 325MG TAB PO SCH (08:07)
[2022-03-13] MEDS: DOCUSATE SODIUM 100MG CAPSULE PO SCH ×2 (08:07→21:00)
[2022-03-13] MEDS: guaiFENesin 200 MG TAB PO SCH ×3 (08:07→21:15)
[2022-03-13] MEDS: PREPARATION H SUPP (HEMORRHOID) PR SCH ×2 (08:08→21:17)
[2022-03-13] MEDS: atenoloL 25 MG TAB PO SCH (08:08)
[2022-03-13] MEDS: MIRALAX *UNIT DOSE* 17GM PACKET PO SCH (08:08)
[2022-03-13] MEDS: ANALGESIC BALM CRM 3OZ TOP SCH ×3 (08:09→21:20)
[2022-03-13] MEDS: FLUTICASONE PROP 0.05% NASAL SPRAY 16 GM (FLONASE) NARES SCH ×2 (08:09→17:15)
[2022-03-13] MEDS: SODIUM CHLORIDE NASAL 0.65% SPRAY BTL (OCEAN) SCH ×3 (08:09→21:19)
[2022-03-13] MEDS: REMEDY PHYTOPLEX Z-GUARD PASTE 113GM TUBE (FROM STOREROOM PRODUCT) TOP SCH ×3 (08:09→21:00)
[2022-03-13] MEDS: DICLOFENAC EPOLAMINE 1.3 % PATCH TOP SCH ×2 (10:21→21:33)
[2022-03-13 20:00] VITALS: BP 131/60
[2022-03-13] MEDS: SENNA 8.6 MG TAB (SENOKOT) PO SCH (21:00)
[2022-03-13] MEDS: GABAPENTIN 400MG CAP PO SCH (21:16)
[2022-03-13] MEDS: RAMELTEON 8 MG TAB (ROZEREM) PO SCH (21:16)
[2022-03-14 06:00] VITALS: BP 142/71
[2022-03-14] MEDS: SUCRALFATE 1 GM TAB PO SCH ×4 (06:43→21:29)
[2022-03-14] MEDS: GABAPENTIN 300 MG CAP PO SCH ×2 (06:43→12:18)
[2022-03-14] MEDS: oxyCODONE 5MG TAB PO PRN (06:43)
[2022-03-14] MEDS: LEVOTHYROXINE 50MCG TABLET (0.05MG) PO SCH (06:43)
[2022-03-14] MEDS: oxyCODONE 5MG TAB PO SCH ×5 (06:57→21:30)
[2022-03-14] MEDS: SYMBICORT 160/4.5MCG INHALER 6GM INH SCH ×2 (07:15→21:41)
[2022-03-14] MEDS: COMBIVENT RESPIMAT 100-20MCG INHALER 4GM INH SCH ×4 (07:15→21:41)
[2022-03-14] MEDS: TIOTROPIUM INHALER/CAPSULE (SPIRIVA) INH SCH (07:15)
[2022-03-14] MEDS: SIMETHICONE 80MG CHEW TAB PO SCH ×3 (08:57→21:28)
[2022-03-14] MEDS: FERROUS SULFATE 325MG TAB PO SCH (08:58)
[2022-03-14] MEDS: ASPIRIN 81MG ENTERIC TABLET PO SCH (08:58)
[2022-03-14] MEDS: atenoloL 25 MG TAB PO SCH (08:58)
[2022-03-14] MEDS: CEFDINIR 300 MG CAP (OMNICEF) PO SCH ×2 (08:58→21:29)
[2022-03-14] MEDS: MULTIVITAMINS/MINERALS THERAP 1 TAB PO SCH (08:59)
[2022-03-14] MEDS: ATORVASTATIN 20 MG TAB PO SCH (08:59)
[2022-03-14] MEDS: PANTOPRAZOLE 40MG TAB (PROTONIX) PO SCH ×2 (08:59→21:29)
[2022-03-14] MEDS: ACETAMINOPHEN 325 MG TAB PO SCH ×3 (08:59→21:29)
[2022-03-14] MEDS: FOLIC ACID 1MG TAB PO SCH (08:59)
[2022-03-14] MEDS: THIAMINE 100 MG TAB PO SCH (08:59)
[2022-03-14] MEDS: LACTOBACILLUS ACIDOPHILUS CAP (BACID) PO SCH ×4 (08:59→21:29)
[2022-03-14] MEDS: MIRALAX *UNIT DOSE* 17GM PACKET PO SCH (08:59)
[2022-03-14] MEDS: DOCUSATE SODIUM 100MG CAPSULE PO SCH ×3 (08:59→21:33)
[2022-03-14] MEDS: guaiFENesin 200 MG TAB PO SCH ×3 (08:59→21:29)
[2022-03-14] MEDS: predniSONE 10 MG TAB PO SCH (08:59)
[2022-03-14] MEDS: REMEDY PHYTOPLEX Z-GUARD PASTE 113GM TUBE (FROM STOREROOM PRODUCT) TOP SCH ×3 (09:00→21:00)
[2022-03-14] MEDS: PREPARATION H SUPP (HEMORRHOID) PR SCH ×2 (09:00→21:00)
[2022-03-14] MEDS: SODIUM CHLORIDE NASAL 0.65% SPRAY BTL (OCEAN) SCH ×3 (09:00→21:31)
[2022-03-14] MEDS: FLUTICASONE PROP 0.05% NASAL SPRAY 16 GM (FLONASE) NARES SCH ×2 (09:00→21:31)
[2022-03-14] MEDS: DICLOFENAC EPOLAMINE 1.3 % PATCH TOP SCH ×3 (09:01→21:30)
[2022-03-14] MEDS: ANALGESIC BALM CRM 3OZ TOP SCH ×3 (09:01→21:31)
[2022-03-14 14:00] VITALS: BP 138/68
[2022-03-14 14:24] LABS: HEMATOCRIT 32.2 % (42.0-52.0); HEMOGLOBIN 9.9 g/dl (13.5-17.5); MEAN CORPUSCULAR HGB CONC 30.7 g/dl (32.0-36.5); MEAN CORPUSCULAR VOLUME 100.9 fl (80.0-96.0); RED BLOOD COUNT 3.19 10^6/uL (4.30-6.10); WHITE BLOOD COUNT 8.8 10^3/uL (4.0-10.0)
[2022-03-14 14:27] LABS: PLATELET COUNT, AUTOMATED 72 10^3/uL (150-450)
[2022-03-14 14:50] LABS: ATYPICAL LYMPH 1 % (0-5); LYMPHOCYTES 4 % (16-44); METAMYELOCYTES 3 % (0-0); MONOCYTES 4 % (0-5); NEUTROPHILS 79 % (28-66); TOXIC GRANULATION 1+; TOXIC VACUOLATION 1+
[2022-03-14 14:51] LABS: PLATELET ESTIMATE DECREASED (NORMAL); POLYCHROMASIA 1+; STOMATOCYTES 1+
[2022-03-14] MEDS ORDERED: SYMB16INH INH (15:15)
[2022-03-14] MEDS ORDERED: SUCR1TA PO (15:15)
[2022-03-14] MEDS ORDERED: THIA100TA PO (15:15)
[2022-03-14] MEDS ORDERED: PRED20TA PO (15:15)
[2022-03-14] MEDS ORDERED: FOLI1TAB11 PO (15:15)
[2022-03-14] MEDS ORDERED: ATEN25TA PO (15:15)
[2022-03-14] MEDS ORDERED: TIOT18INH INH (15:15)
[2022-03-14] MEDS ORDERED: FERR1TAB8 PO (15:15)
[2022-03-14] MEDS ORDERED: ASPI-161 PO (15:15)
[2022-03-14] MEDS ORDERED: COMBAER6 INH (15:15)
[2022-03-14] MEDS ORDERED: RISATAB3 PO (15:15)
[2022-03-14] MEDS ORDERED: LEVO50TA5 PO (15:15)
[2022-03-14] MEDS ORDERED: OXYC-517 PO (15:15)
[2022-03-14] MEDS ORDERED: GABA-283 PO (15:15)
[2022-03-14] MEDS ORDERED: OMEP40CA5 PO (15:15)
[2022-03-14] MEDS ORDERED: SIME80TA16 PO (15:15)
[2022-03-14] MEDS ORDERED: ATOR80TA59 PO (15:15)
[2022-03-14] MEDS ORDERED: CEFD300CAP PO (15:19)
[2022-03-14] MEDS ORDERED: POTA1TAB14 PO (15:22)
[2022-03-14 19:34] VITALS: BP 143/66
[2022-03-14] MEDS: SENNA 8.6 MG TAB (SENOKOT) PO SCH ×2 (21:00→21:33)
[2022-03-14] MEDS: RAMELTEON 8 MG TAB (ROZEREM) PO SCH (21:28)
[2022-03-14] MEDS: GABAPENTIN 400MG CAP PO SCH (21:29)
[2022-03-15] MEDS: LEVOTHYROXINE 50MCG TABLET (0.05MG) PO SCH (05:30)
[2022-03-15 05:32] VITALS: BP 142/71
[2022-03-15] MEDS: GABAPENTIN 300 MG CAP PO SCH (06:05)
[2022-03-15] MEDS: oxyCODONE 5MG TAB PO SCH (06:06)
[2022-03-15 07:35] LABS: BLOOD UREA NITROGEN 20 MG/DL (9-23); CALCIUM LEVEL 8.2 MG/DL (8.3-10.6); CARBON DIOXIDE LEVEL 35 MMOL/L (20-31); CHLORIDE LEVEL 102 MMOL/L (98-107); CREATININE FOR GFR 0.79 MG/DL (0.70-1.30); GLOMERULAR FILTRATION RATE > 60.0 (>49); GLUCOSE, FASTING 105 MG/DL (74-106); SODIUM LEVEL 145 MMOL/L (136-145)
[2022-03-15] MEDS: MIRALAX *UNIT DOSE* 17GM PACKET PO SCH (07:37)
[2022-03-15] MEDS: SIMETHICONE 80MG CHEW TAB PO SCH (07:45)
[2022-03-15] MEDS: predniSONE 10 MG TAB PO SCH (07:46)
[2022-03-15] MEDS: ACETAMINOPHEN 325 MG TAB PO SCH (07:46)
[2022-03-15] MEDS: LACTOBACILLUS ACIDOPHILUS CAP (BACID) PO SCH (07:46)
[2022-03-15 07:47] VITALS: BP 142/71
[2022-03-15] MEDS: MULTIVITAMINS/MINERALS THERAP 1 TAB PO SCH (07:47)
[2022-03-15] MEDS: FOLIC ACID 1MG TAB PO SCH (07:47)
[2022-03-15] MEDS: ASPIRIN 81MG ENTERIC TABLET PO SCH (07:47)
[2022-03-15] MEDS: atenoloL 25 MG TAB PO SCH (07:47)
[2022-03-15] MEDS: SUCRALFATE 1 GM TAB PO SCH (07:47)
[2022-03-15] MEDS: guaiFENesin 200 MG TAB PO SCH (07:47)
[2022-03-15] MEDS: THIAMINE 100 MG TAB PO SCH (07:47)
[2022-03-15] MEDS: DOCUSATE SODIUM 100MG CAPSULE PO SCH (07:47)
[2022-03-15] MEDS: PANTOPRAZOLE 40MG TAB (PROTONIX) PO SCH (07:48)
[2022-03-15] MEDS: ATORVASTATIN 20 MG TAB PO SCH (07:48)
[2022-03-15] MEDS: FERROUS SULFATE 325MG TAB PO SCH (07:48)
[2022-03-15] MEDS: CEFDINIR 300 MG CAP (OMNICEF) PO SCH (07:48)
[2022-03-15] MEDS: ANALGESIC BALM CRM 3OZ TOP SCH (07:50)
[2022-03-15] MEDS: PREPARATION H SUPP (HEMORRHOID) PR SCH (07:50)
[2022-03-15] MEDS: FLUTICASONE PROP 0.05% NASAL SPRAY 16 GM (FLONASE) NARES SCH (07:50)
[2022-03-15] MEDS: SODIUM CHLORIDE NASAL 0.65% SPRAY BTL (OCEAN) SCH (07:51)
[2022-03-15] MEDS: TIOTROPIUM INHALER/CAPSULE (SPIRIVA) INH SCH (08:00)
[2022-03-15] MEDS: SYMBICORT 160/4.5MCG INHALER 6GM INH SCH (08:00)
[2022-03-15] MEDS: COMBIVENT RESPIMAT 100-20MCG INHALER 4GM INH SCH (08:00)
[2022-03-15] MEDS: REMEDY PHYTOPLEX Z-GUARD PASTE 113GM TUBE (FROM STOREROOM PRODUCT) TOP SCH (09:00)
[2022-03-15] MEDS: DICLOFENAC EPOLAMINE 1.3 % PATCH TOP SCH (10:17)
== END 2022-03-15 11:35 | disposition home or self-care (01) | DRG 560 ==
LOC: M PM&R 14:09
PROVIDERS: ADMIT Physical Medicine & Rehabilitation; ATTEND Physical Medicine & Rehabilitation
PROC: 30233N1 Transfusion of Nonautologous Red Blood Cells into Peripheral Vein, Percutaneous Approach (ICD-10-PCS; principal; 2022-03-09)
DX: S72.141D Displaced intertrochanteric fracture of right femur, subsequent encounter for closed fracture with routine healing (principal); J44.1 Chronic obstructive pulmonary disease with (acute) exacerbation; J96.11 Chronic respiratory failure with hypoxia; J96.12 Chronic respiratory failure with hypercapnia; D62 Acute posthemorrhagic anemia; I25.10 Atherosclerotic heart disease of native coronary artery without angina pectoris; D69.59 Other secondary thrombocytopenia; R26.89 Other abnormalities of gait and mobility; I73.9 Peripheral vascular disease, unspecified; F10.10 Alcohol abuse, uncomplicated; F17.200 Nicotine dependence, unspecified, uncomplicated; G47.33 Obstructive sleep apnea (adult) (pediatric); Z95.5 Presence of coronary angioplasty implant and graft; Z95.820 Peripheral vascular angioplasty status with implants and grafts; Z85.118 Personal history of other malignant neoplasm of bronchus and lung; Z90.2 Acquired absence of lung [part of]; Z92.21 Personal history of antineoplastic chemotherapy; Z92.3 Personal history of irradiation; Z74.09 Other reduced mobility; Z74.1 Need for assistance with personal care; Z79.82 Long term (current) use of aspirin; Z79.890 Hormone replacement therapy; Z79.02 Long term (current) use of antithrombotics/antiplatelets; Z79.52 Long term (current) use of systemic steroids; Z79.899 Other long term (current) drug therapy; Z99.81 Dependence on supplemental oxygen; K64.9 Unspecified hemorrhoids; K80.20 Calculus of gallbladder without cholecystitis without obstruction; E03.9 Hypothyroidism, unspecified; E87.6 Hypokalemia; M25.551 Pain in right hip

== ENCOUNTER → 2022-03-26 | Outpatient (CLI) | payer MEDICARE ==
[~2022-03-26] MED LIST changes: +CEFD300CAP PO; +COMBAER6 INH; +FERR1TAB8 PO; +FOLI1TAB11 PO; +GABA-283 PO; +IPRA0.00 NEB; +MIRA1POW3 PO; +OXYC-517 PO; +POTA1TAB14 PO; +PRED20TA PO; +RISATAB3 PO; +SIME80TA16 PO; +SUCR1TA PO; +SYMB16INH INH; +THIA100TA PO; +TIOT18INH INH
== END ==
LOC: M SOG 08:00
PROVIDERS: ATTEND Orthopaedic Surgery
DX: M25.551 Pain in right hip (principal); Z53.8 Procedure and treatment not carried out for other reasons